=== PATIENT | male | born 1980 | race Caucasian/White ===

== ENCOUNTER 2019-01-02 14:46 | Inpatient (IN) | payer OTHER ==
[2019-01-02 16:23] VITALS: BMI 30.5
--- NOTE | 2019-01-02 18:14 | HP ---
"CIWA Score - Admission Criteria [facility]ASAS Guidelines: Admission for Medically Managed Detox: Requires at least one of the followin. CIWA greater than 12 2. Seizures within the past 24 hours 3. Delirium tremens within the past 24 hours 4. Hallucinations within the past 24 hours 5. Acute intervention needed for co occurring medical disorder 6. Acute intervention needed for co occurring psychiatric disorder 7. Severe withdrawal that cannot be handled at a lower level of care (continued vomiting, continued diarrhea, abnormal vital signs) requiring intravenous medication and/or fluids 8. Admission ROS [facility] Chief Complaint: seeking help for benzo use Allergies/Adverse Reactions: Allergies Allergy/AdvReac Type Severity Reaction Status Date / Time Bleach (Sodium Hypochlorite) AdvReac Verified 01/02/19 16:12 History of Present Illness: 38 y/o/m here seeking help for benzodiazepine use. He has been using Xanax heavily for the last 6 months but has used benzodiazepines on and off the the last 15 years. He has been using 10-20 2mg pills of Xanax almost everyday. He last used 3mg of Xanax yesterday. He uses cocaine less than once a week when he can't get access to Xanax. He uses the cocaine by inhaling and smoking it, last use 2 days ago. He has used it IV in the past but denies any current IV use. He has been in a methadone program at [facility] for 2 years, his current dose is 120mg. He had his methadone dose today. He has been using Heroin as well for the last 6 months. He last used heroin 2 days. He has been using 2 bags almost daily. He also uses Catapres 3mg 3-4 times a week when he doesn't have enough Xanax. He also uses Klonopin when he doesn't have access to Xanax. He denies any history of overdosing but does carry a Narcan kit. He has PMHx of asthma and depression. He uses albuterol as needed. He takes gabapentin and Trileptil for depression but does not always take it regularly, he has not used gabapentin and trileptil in a month. He had an appendectomy 2002. He smokes a pack a day of cigarettes. 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 He denies using alcohol currently. His longest period of sobriety was from 2007 to 2009. This report was requested by: Lillie Ruvalcaba | Reference #: [id number] Others' Prescriptions Patient Name: Pancho Nieves Date: 1980 Address: [address] [place] [address] [place] [address] Sex: Male Rx Written Rx Dispensed Drug Quantity Days Supply Prescriber Name 09/10/2018 09/11/2018 chlordiazepoxide 25 mg capsule 20 5 Jenny Duran MD - Ebola screening Have you traveled outside of the country in the last 21 days: No Have you had contact with anyone from an Ebola affected area: No Do you have a fever: No - Review of Systems Constitutional: Chills, Fever, Loss of Appetite EENT: reports: No Symptoms Reported Respiratory: reports: No Symptoms reported Cardiac: reports: No Symptoms Reported GI: reports: Diarrhea, Nausea, Vomiting : reports: No Symptoms Reported Musculoskeletal: reports: Muscle Pain Integumentary: reports: Other (abrasions) Neuro: reports: Tremors Endocrine: reports: Unexplained Weight Loss Hematology: reports: No Symptoms Reported Psychiatric: reports: Agitated, Anxious Other Systems: Reviewed and Negative Patient History - Patient Medical History Hx Anemia: No Hx Asthma: Yes Hx Chronic Obstructive Pulmonary Disease (COPD): No Hx Cancer: No Hx Cardiac Disorders: No Hx Congestive Heart Failure: No Hx Hypertension: No Hx Hypercholesterolemia: No Hx Pacemaker: No HX Cerebrovascular Accident: No Hx Seizures: No Hx Dementia: No Hx Diabetes: No Hx Gastrointestinal Disorders: No Hx Liver Disease: No Hx Genitourinary Disorders: No Hx Sexually Transmitted Disorders: No Hx Renal Disease (ESRD): No Hx Thyroid Disease: No Hx Human Immunodeficiency Virus (HIV): No (hiv - 10/03) Hx Hepatitis C: No Hx Depression: No Hx Suicide Attempt: No Hx Bipolar Disorder: No Hx Schizophrenia: No - Patient Surgical History Hx Neurologic Surgery: No Hx Cataract Extraction: No Hx Cardiac Surgery: No Hx Lung Surgery: No Hx Abdominal Surgery: No Hx Appendectomy: Yes (2002) Hx Cholecystectomy: No Hx Genitourinary Surgery: No Hx Orthopedic Surgery: No Hx Hysterectomy: No - PPD History Previous Implant?: Yes Documented Results: Negative w/o proof Implanted On Prior [facility] Admission?: No - Smoking Cessation Smoking history: Current every day smoker Have you smoked in the past 12 months: Yes Aproximately how many cigarettes per day: 20 Cigars Per Day: 0 Hx Chewing Tobacco Use: No Initiated information on smoking cessation: Yes 'Breaking Loose' booklet given: 01/02/19 - Substances abused Alprazolam (Xanax) Substance route: Oral Frequency: Daily Amount used: between 10 to 20 mg Age of first use: 25 Date of last use: 01/01/19 Family Disease History - Family Disease History Family Disease History: CA: Father (pancreatic - ) Admission Physical Exam [facility] - Vital Signs Vital Signs: Vital Signs - 24 hr 01/02/19 16:16 Temperature 97 F L Pulse Rate 87 Respiratory 18 Rate Blood Pressure 140/97 - Physical General Appearance: Yes: Mild Distress HEENTM: Yes: EOMI, Normocephalic Respiratory: Yes: Lungs Clear, Normal Breath Sounds, No Accessory Muscle Use Neck: Yes: Supple Cardiology: Yes: Regular Rhythm, Regular Rate, S1, S2 Abdominal: Yes: Normal Bowel Sounds, Non Tender, Soft. No: Guarding, Rebound Extremities: Yes: Normal Capillary Refill, Tremors. 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 NML intact, Fully Oriented, Alert, Motor Strength 5/5 Integumentary: Yes: Other (multiple well healing abrasions on the left side of the face) - Diagnostic (1) Asthma Current Visit: No Status: Chronic (2) Methadone maintenance therapy patient Current Visit: No Status: Chronic (3) Nicotine dependence Current Visit: No Status: Chronic Qualifiers: Nicotine product type: cigarettes Substance use status: uncomplicated Qualified Code(s): F17.210 - Nicotine dependence, cigarettes, uncomplicated (4) Severe benzodiazepine use disorder Current Visit: Yes Status: Acute Cleared for Admission [facility] - Detox or Rehab [facility] Level of Care: Medically Supervised 2Day Detox Regimen/Protocol: Valium Breathalyzer - Breathalyzer Breathalyzer: 0 Urine Drug Screen - Test Device Lot number: [id number] Expiration date: 10/14/20 - Control Is test valid?: Yes - Results Drug screen NEGATIVE: No Urine drug screen results: JOE-Cocaine, FEN-Fentanyl, MTD-Methadone, BZO- Benzodiazepines Inpatient Rehab Admission - Rehab Decision to Admit Inpatient rehab admission?: No"
[2019-01-02] MEDS ORDERED: MELATONIN 5 MG TABLETS PO PRN (19:04)
[2019-01-02] MEDS ORDERED: MAG HYDROX/AL HYDROX/SIMETH 30 ML UNIT-DOSE CUP PO PRN (19:04)
[2019-01-02] MEDS ORDERED: MAGNESIUM CITRATE 300 ML BOTTLE PO PRN (19:04)
[2019-01-02] MEDS ORDERED: BISMUTH SUBSALICYLATE 524 MG/30 ML UD PO PRN (19:04)
[2019-01-02] MEDS ORDERED: ACETAMINOPHEN 325 MG TABLET (FP) PO PRN ×2 (19:04)
[2019-01-02] MEDS ORDERED: IBUPROFEN 400 MG TABLET (FP) PO PRN (19:04)
[2019-01-02] MEDS ORDERED: MAGNESIUM HYDROX 2400MG/30ML ORAL SUSPENSION 30 ML CUP PO PRN (19:04)
[2019-01-02] MEDS ORDERED: diazePAM 5 MG TABLET PO ONE (19:04)
[2019-01-02] MEDS ORDERED: MENTHOL/PHENOL 1 EACH UD MM PRN (19:04)
[2019-01-02] MEDS ORDERED: ALBUTEROL SO4 8 GM HFA INHALER IH PRN (19:06)
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
[2019-01-02] MEDS: THIAMINE HCL 100 MG TABLET (FP) PO SCH (21:38)
[2019-01-02] MEDS: diazePAM 5 MG TABLET PO SCH (21:38)
[2019-01-03] MEDS: diazePAM 5 MG TABLET PO PRN ×3 (01:41→17:37)
[2019-01-03] MEDS: diazePAM 5 MG TABLET PO SCH ×3 (05:11→22:02)
[2019-01-03] MEDS ORDERED: METHADONE HCL 10 MG TABLET PO SCH (07:45)
[2019-01-03] MEDS ORDERED: METHADONE HCL 10 MG TABLET ONE (07:55)
[2019-01-03] MEDS ORDERED: METHADONE HCL 40 MG DISPERSABLE TABLET ONE (07:56)
[2019-01-03] MEDS: METHADONE 80 MG, METHADONE 20 MG PO SCH (08:02)
[2019-01-03] MEDS: BACITRACIN 15 GM TUBE TOPICAL OINTMENT TP SCH (10:28)
[2019-01-03] MEDS: hydrOXYzine HCL 25 MG TABLET (FP) PO PRN ×2 (10:30→17:38)
[2019-01-03] MEDS: METHOCARBAMOL 500 MG TABLET PO PRN ×2 (10:30→17:38)
[2019-01-03] MEDS: NICOTINE POLACRILEX 2 MG GUM BUC PRN ×3 (10:30→17:37)
[2019-01-03 10:34] LABS: ALBUMIN 3.4 g/dl (3.4-5.0); BILIRUBIN,TOTAL 0.2 mg/dL (0.2-1); BLOOD UREA NITROGEN 12.5 mg/dL (7-18); CREATININE 0.7 mg/dL (0.55-1.3); POTASSIUM 4.2 mmol/L (3.5-5.1); TOT PROT 6.3 g/dl (6.4-8.2)
[2019-01-03 10:56] LABS: HEMATOCRIT 37.4 % (35.4-49); HEMOGLOBIN 12.4 GM/dL (11.7-16.9); MCH 29.4 pg (25.7-33.7); MCHC 33.1 g/dl (32.0-35.9); MEAN CELL VOLUME 88.9 fl (80-96); MEAN PLT VOLUME 8.4 fl (7.5-11.1); PLATELET COUNT 238 K/MM3 (134-434); RBC 4.21 M/mm3 (4.00-5.60); RDW 14.6 % (11.9-15.9)
[2019-01-03] MEDS: PRENATAL VITAMINS W/ FOLIC ACID TABLET (FP) PO SCH (11:00)
--- NOTE | 2019-01-03 14:58 | PN ---
S CIWA - CIWA Score Nausea/Vomitin (Stomach Cramping.) Muscle Tremors: 3 Anxiety: 3 Agitation: 2 Paroxysmal Sweats: No Perspiration Orientation: 0-Oriented Tacttile Disturbances: 0-None Auditory Disturbances: 1-Very Mild Visual Disturbances: 2-Mild Sensitivity Headache: 0-None Present CIWA-Ar Total Score: 13 [facility] Progress Note (SOAP) Subjective: Sweating, Anxious, Interrupted Sleep, Tremors. Objective: PATIENT A & O X 3, OBSERVED AMBULATING ON UNIT UNASSISTED. IN NO ACUTE DISTRESS. 01/03/19 14:57 Vital Signs Temperature 97.2 F L 01/03/19 13:55 Pulse Rate 60 01/03/19 13:55 Respiratory Rate 18 01/03/19 13:55 Blood Pressure 135/89 01/03/19 13:55 O2 Sat by Pulse Oximetry (%) Laboratory Tests 01/03/19 01/03/19 01/03/19 08:00 08:00 08:00 WBC 4.0 RBC 4.21 Hgb 12.4 Hct 37.4 MCV 88.9 MCH 29.4 MCHC 33.1 RDW 14.6 D Plt Count 238 MPV 8.4 Sodium 140 Potassium 4.2 Chloride 108 H Carbon Dioxide 28 Anion Gap 4 L BUN 12.5 Creatinine 0.7 Est GFR (CKD-EPI)AfAm 140.71 Est GFR (CKD-EPI)NonAf 121.41 Random Glucose 91 Calcium 9.0 Total Bilirubin 0.2 AST 9 L ALT 17 Alkaline Phosphatase 89 Total Protein 6.3 L Albumin 3.4 RPR Titer Nonreactive LABS NOTED. RESULTS OF QFT /TB TEST PENDING. 01/03/19 14:58 Assessment: 01/03/19 14:58 WITHDRAWAL SYMPTOMS. Plan: CONTINUE DETOX.
[2019-01-03] MEDS: THIAMINE HCL 100 MG TABLET (FP) PO SCH (22:01)
[2019-01-04] MEDS: METHOCARBAMOL 500 MG TABLET PO PRN ×3 (03:29→22:10)
[2019-01-04] MEDS: hydrOXYzine HCL 25 MG TABLET (FP) PO PRN (03:29)
[2019-01-04] MEDS: diazePAM 5 MG TABLET PO PRN ×4 (03:29→22:10)
[2019-01-04] MEDS ORDERED: METHADONE HCL 10 MG TABLET ONE (04:31)
[2019-01-04] MEDS ORDERED: METHADONE HCL 40 MG DISPERSABLE TABLET ONE (04:32)
[2019-01-04] MEDS: METHADONE 80 MG, METHADONE 20 MG PO SCH (05:07)
[2019-01-04] MEDS: diazePAM 5 MG TABLET PO SCH ×2 (05:08→17:25)
[2019-01-04] MEDS: NICOTINE POLACRILEX 2 MG GUM BUC PRN ×4 (08:42→22:12)
--- NOTE | 2019-01-04 09:22 | PN ---
[facility] CIWA - CIWA Score Nausea/Vomitin-No Nausea/No Vomiting Muscle Tremors: 2 Anxiety: 3 Agitation: 2 Paroxysmal Sweats: 1-Minimal Palms Moist Orientation: 0-Oriented Tacttile Disturbances: 1-Very Mild Itch/Numbness Auditory Disturbances: 0-None Visual Disturbances: 0-None Headache: 0-None Present CIWA-Ar Total Score: 9 BHS Progress Note (SOAP) Subjective: 38 years old male admitted on 01/02/19 for acute benzo withdrawal sx management report valium helping the withdrawal sx that other hospitals 2 weeks benzo detox discuss risks of valium along with methadone patient stated that he is taking prascription valium monthly and requested prescription for valium encourage the patient discuss banzo prescription with methadone program provider Objective: 01/04/19 09:26 Vital Signs Temperature 98.6 F 01/04/19 09:06 Pulse Rate 88 01/04/19 09:06 Respiratory Rate 18 01/04/19 09:06 Blood Pressure 135/88 01/04/19 09:06 O2 Sat by Pulse Oximetry (%) Laboratory Last Values WBC 4.0 K/mm3 (4.0-10.0) 01/03/19 08:00 RBC 4.21 M/mm3 (4.00-5.60) 01/03/19 08:00 Hgb 12.4 GM/dL (11.7-16.9) 01/03/19 08:00 Hct 37.4 % (35.4-49) 01/03/19 08:00 MCV 88.9 fl (80-96) 01/03/19 08:00 MCH 29.4 pg (25.7-33.7) 01/03/19 08:00 MCHC 33.1 g/dl (32.0-35.9) 01/03/19 08:00 RDW 14.6 % (11.9-15.9) D 01/03/19 08:00 Plt Count 238 K/MM3 (134-434) 01/03/19 08:00 MPV 8.4 fl (7.5-11.1) 01/03/19 08:00 Sodium 140 mmol/L (136-145) 01/03/19 08:00 Potassium 4.2 mmol/L (3.5-5.1) 01/03/19 08:00 Chloride 108 mmol/L (98-107) H 01/03/19 08:00 Carbon Dioxide 28 mmol/L (21-32) 01/03/19 08:00 Anion Gap 4 MMOL/L (8-16) L 01/03/19 08:00 BUN 12.5 mg/dL (7-18) 01/03/19 08:00 Creatinine 0.7 mg/dL (0.55-1.3) 01/03/19 08:00 Est GFR (CKD-EPI)AfAm 140.71 01/03/19 08:00 Est GFR (CKD-EPI)NonAf 121.41 01/03/19 08:00 Random Glucose 91 mg/dL (74-106) 01/03/19 08:00 Calcium 9.0 mg/dL (8.5-10.1) 01/03/19 08:00 Total Bilirubin 0.2 mg/dL (0.2-1) 01/03/19 08:00 AST 9 U/L (15-37) L 01/03/19 08:00 ALT 17 U/L (13-61) 01/03/19 08:00 Alkaline Phosphatase 89 U/L (45-117) 01/03/19 08:00 Total Protein 6.3 g/dl (6.4-8.2) L 01/03/19 08:00 Albumin 3.4 g/dl (3.4-5.0) 01/03/19 08:00 RPR Titer Nonreactive (NONREACTIVE) 01/03/19 08:00 lab noted Assessment: 01/04/19 09:27 mild benzo withdrawal sx Plan: continue benzo detox
[2019-01-04] MEDS: PRENATAL VITAMINS W/ FOLIC ACID TABLET (FP) PO SCH (10:51)
[2019-01-04] MEDS: BACITRACIN 15 GM TUBE TOPICAL OINTMENT TP SCH (10:51)
[2019-01-04] MEDS: THIAMINE HCL 100 MG TABLET (FP) PO SCH (22:09)
[2019-01-05] MEDS: NICOTINE POLACRILEX 2 MG GUM BUC PRN ×2 (01:45→05:20)
[2019-01-05] MEDS: diazePAM 5 MG TABLET PO PRN ×2 (02:13→09:38)
[2019-01-05] MEDS ORDERED: METHADONE HCL 40 MG DISPERSABLE TABLET ONE (04:55)
[2019-01-05] MEDS ORDERED: METHADONE HCL 10 MG TABLET ONE (04:55)
[2019-01-05] MEDS: METHOCARBAMOL 500 MG TABLET PO PRN (05:17)
[2019-01-05] MEDS: METHADONE 80 MG, METHADONE 20 MG PO SCH (05:17)
[2019-01-05] MEDS ORDERED: diazePAM 5 MG TABLET PO ONE (06:00)
[2019-01-05 07:16] VITALS: BP 115/70; PULSE 57; TEMP 97.3
[2019-01-05] MEDS: PRENATAL VITAMINS W/ FOLIC ACID TABLET (FP) PO SCH (09:38)
[2019-01-05] MEDS: BACITRACIN 15 GM TUBE TOPICAL OINTMENT TP SCH (09:40)
--- NOTE | 2019-01-05 16:05 | DS ---
[facility] Detox Discharge Summary Admission Date: 01/02/19 Discharge Date: 01/05/19 - History Present History: Alcohol Dependence Additional Comments: 38 years old male admitted on 01/02/19 for alcohol withdrawal sx management doing well throughout the detox stay no complication during the detox process alert oriented x 3 no nausea steady gait no diarrhea [facility] - Physical Exam Results Vital Signs: Vital Signs Temperature 97.3 F L 01/05/19 07:15 Pulse Rate 57 L 01/05/19 07:15 Respiratory Rate 18 01/05/19 07:15 Blood Pressure 115/70 01/05/19 07:15 O2 Sat by Pulse Oximetry (%) Pertinent Admission Physical Exam Findings: alcohol withdrawal sx Laboratory Last Values WBC 4.0 K/mm3 (4.0-10.0) 01/03/19 08:00 RBC 4.21 M/mm3 (4.00-5.60) 01/03/19 08:00 Hgb 12.4 GM/dL (11.7-16.9) 01/03/19 08:00 Hct 37.4 % (35.4-49) 01/03/19 08:00 MCV 88.9 fl (80-96) 01/03/19 08:00 MCH 29.4 pg (25.7-33.7) 01/03/19 08:00 MCHC 33.1 g/dl (32.0-35.9) 01/03/19 08:00 RDW 14.6 % (11.9-15.9) D 01/03/19 08:00 Plt Count 238 K/MM3 (134-434) 01/03/19 08:00 MPV 8.4 fl (7.5-11.1) 01/03/19 08:00 Sodium 140 mmol/L (136-145) 01/03/19 08:00 Potassium 4.2 mmol/L (3.5-5.1) 01/03/19 08:00 Chloride 108 mmol/L (98-107) H 01/03/19 08:00 Carbon Dioxide 28 mmol/L (21-32) 01/03/19 08:00 Anion Gap 4 MMOL/L (8-16) L 01/03/19 08:00 BUN 12.5 mg/dL (7-18) 01/03/19 08:00 Creatinine 0.7 mg/dL (0.55-1.3) 01/03/19 08:00 Est GFR (CKD-EPI)AfAm 140.71 01/03/19 08:00 Est GFR (CKD-EPI)NonAf 121.41 01/03/19 08:00 Random Glucose 91 mg/dL (74-106) 01/03/19 08:00 Calcium 9.0 mg/dL (8.5-10.1) 01/03/19 08:00 Total Bilirubin 0.2 mg/dL (0.2-1) 01/03/19 08:00 AST 9 U/L (15-37) L 01/03/19 08:00 ALT 17 U/L (13-61) 01/03/19 08:00 Alkaline Phosphatase 89 U/L (45-117) 01/03/19 08:00 Total Protein 6.3 g/dl (6.4-8.2) L 01/03/19 08:00 Albumin 3.4 g/dl (3.4-5.0) 01/03/19 08:00 RPR Titer Nonreactive (NONREACTIVE) 01/03/19 08:00 lab noted - Treatment Hospital Course: Detox Protocol Followed, Detoxed Safely, Responded well, Discharged Condition Good, Rehab Referral Accepted Patient has Accepted a Rehab Referral to: wellness center - Medication Discharge Medications: Ambulatory Orders Albuterol Sulfate [Proair Hfa -] 1 inh IH PRN PRN 06/09/15 Gabapentin 300 mg PO TID 01/02/19 - Diagnosis (1) Asthma Status: Chronic Qualifiers: Asthma severity: mild Asthma persistence: intermittent Asthma complication type: with status asthmaticus Qualified Code(s): J45.22 - Mild intermittent asthma with status asthmaticus (2) Alcohol dependence with uncomplicated withdrawal Status: Acute (3) Methadone maintenance therapy patient Status: Chronic (4) Nicotine dependence Status: Acute Qualifiers: Nicotine product type: cigarettes Substance use status: in withdrawal Qualified Code(s): F17.213 - Nicotine dependence, cigarettes, with withdrawal - AMA Did Patient Leave Against Medical Advice: No
== END 2019-01-05 09:43 | disposition home or self-care (01) | DRG 773 ==
LOC: YASAS 14:46 → Y3N 18:40
PROVIDERS: ADMIT Surgery; ATTEND Surgery
PROC: HZ2ZZZZ Detoxification Services for Substance Abuse Treatment (ICD-10-PCS; principal; 2019-01-02)
DX: F10.230 Alcohol dependence with withdrawal, uncomplicated (principal); F11.20 Opioid dependence, uncomplicated; F13.230 Sedative, hypnotic or anxiolytic dependence with withdrawal, uncomplicated; F17.213 Nicotine dependence, cigarettes, with withdrawal; J45.22 Mild intermittent asthma with status asthmaticus
CPT/HCPCS: 36415; 80053; 85027; 86480; 86593

== ENCOUNTER 2019-01-26 12:42 | Inpatient (IN) | payer OTHER ==
[2019-01-26 15:04] VITALS: BMI 29.7
--- NOTE | 2019-01-26 16:22 | HP ---
COWS - Scale Resting Pulse: 1= VT 81-100 Sweatin= Chills/Flushing Restless Observation: 1= Difficult to Sit Still Pupil Size: 1= Pupils >than Normal Bone or Joint Aches: 2= Severe Diffuse Aches Runny Nose/ Eye Tearin= Runny Nose/Eyes GI Upset > 30mins: 2= Nausea/Diarrhea Tremor Observation: 2= Slight Tremor Visible Yawning Observation: 1= 1-2x During Session Anxiety or Irritability: 1=Feels Anxious/Irritable Goose Flesh Skin: 0=Smooth Skin COWS Score: 14 CIWA Score Nausea/Vomitin-Mild Nausea/No Vomiting Muscle Tremors: 3 Anxiety: 3 Agitation: 3 Paroxysmal Sweats: 3 Orientation: 0-Oriented Tacttile Disturbances: 0-None Auditory Disturbances: 0-None Visual Disturbances: 0-None Headache: 2-Mild CIWA-Ar Total Score: 15 - Admission Criteria OASAS Guidelines: Admission for Medically Managed Detox: Requires at least one of the followin. CIWA greater than 12 2. Seizures within the past 24 hours 3. Delirium tremens within the past 24 hours 4. Hallucinations within the past 24 hours 5. Acute intervention needed for co occurring medical disorder 6. Acute intervention needed for co occurring psychiatric disorder 7. Severe withdrawal that cannot be handled at a lower level of care (continued vomiting, continued diarrhea, abnormal vital signs) requiring intravenous medication and/or fluids 8. Admission ROS [facility] Chief Complaint: pt here for alcohol and xanax detox Allergies/Adverse Reactions: Allergies Allergy/AdvReac Type Severity Reaction Status Date / Time No Known Drug Allergies Allergy Verified 01/02/19 21:04 Bleach (Sodium Hypochlorite) AdvReac Mild Itching Verified 01/26/19 14:55 History of Present Illness: 38 yo old with HCV- cured, asthma, left here after detox on 01/05/19, returns here because he "does not want to ". Here for heroin and xanax detoc. Pt was discharged from a MAT methadone program about a month ago due to violation of program rules. Pt would like to get into another methadone program. Heroin 4-5 bundles/day, IV, narcan kit, no h/o OD Xanax-10-20 2 mg dose/day DUR- no meds - Ebola screening Have you traveled outside of the country in the last 21 days: No Have you had contact with anyone from an Ebola affected area: No Do you have a fever: No - Review of Systems Constitutional: No Symptoms Reported EENT: reports: Other (toothache) Respiratory: reports: No Symptoms reported Cardiac: reports: No Symptoms Reported GI: reports: No Symptoms Reported : reports: No Symptoms Reported Musculoskeletal: reports: No Symptoms Reported Integumentary: reports: Other (tatoos) Endocrine: reports: No Symptoms Reported Hematology: reports: Other Psychiatric: reports: Anxious Patient History - Patient Medical History Hx Anemia: No Hx Asthma: Yes Hx Chronic Obstructive Pulmonary Disease (COPD): No Hx Cancer: No Hx Cardiac Disorders: No Hx Congestive Heart Failure: No Hx Hypertension: No Hx Hypercholesterolemia: No Hx Pacemaker: No HX Cerebrovascular Accident: No Hx Seizures: No Hx Dementia: No Hx Diabetes: No Hx Gastrointestinal Disorders: No Hx Liver Disease: No Hx Genitourinary Disorders: No Hx Sexually Transmitted Disorders: No Hx Renal Disease (ESRD): No Hx Thyroid Disease: No Hx Human Immunodeficiency Virus (HIV): No (hiv - 10/03) Hx Hepatitis C: No Hx Depression: No Hx Suicide Attempt: No Hx Bipolar Disorder: No Hx Schizophrenia: No - Patient Surgical History Past Surgical History: Yes Hx Neurologic Surgery: No Hx Cataract Extraction: No Hx Cardiac Surgery: No Hx Lung Surgery: No Hx Abdominal Surgery: No Hx Appendectomy: Yes (2002) Hx Cholecystectomy: No Hx Genitourinary Surgery: No Hx Orthopedic Surgery: No Hx Hysterectomy: No Anesthesia Reaction: No - Smoking Cessation Smoking history: Current every day smoker Have you smoked in the past 12 months: Yes Aproximately how many cigarettes per day: 20 Cigars Per Day: 0 Hx Chewing Tobacco Use: No Initiated information on smoking cessation: Yes 'Breaking Loose' booklet given: 01/26/19 - Substance & Tx. History Hx Alcohol Use: Yes Hx Substance Use: Yes Substance Use Type: Heroin, Tranquilizers - Substances abused Alprazolam (Xanax) Substance route: Oral Frequency: Daily Amount used: 20 to 40 mg Age of first use: 28 Date of last use: 01/24/19 Heroin Substance route: Injection Frequency: Daily Amount used: 3 grams or 4 to 5 bundles a day Age of first use: 20 Date of last use: 01/25/19 Family Disease History - Family Disease History Family Disease History: CA: Father (pancreatic - ) Admission Physical Exam [facility] - Vital Signs Vital Signs: Vital Signs - 24 hr 01/26/19 14:53 Temperature 97.6 F Pulse Rate 94 H Respiratory 18 Rate Blood Pressure 130/95 - Physical General Appearance: Yes: Within Normal Limits HEENTM: Yes: Within Normal Limits Respiratory: Yes: Within Normal Limits, Lungs Clear Neck: Yes: Within Normal Limits, No masses,lesions,Nodules Cardiology: Yes: Within Normal Limits Abdominal: Yes: Within Normal Limits, Normal Bowel Sounds, Non Tender Genitourinary: Yes: Within Normal Limits Back: Yes: Within Normal Limits Musculoskeletal: Yes: Within Normal Limits Extremities: Yes: Within Normal Limits Neurological: Yes: Within Normal Limits Integumentary: Yes: Within Normal Limits, Petechiae - Diagnostic (1) Anxiolytic dependence Current Visit: No Status: Acute (2) Opioid dependence on agonist therapy Current Visit: No Status: Acute (3) Severe benzodiazepine use disorder Current Visit: No Status: Acute (4) Xanax use disorder, severe Current Visit: No Status: Acute (5) Asthma Current Visit: No Status: Chronic Qualifiers: Asthma severity: mild Asthma persistence: intermittent Asthma complication type: with status asthmaticus Qualified Code(s): J45.22 - Mild intermittent asthma with status asthmaticus Breathalyzer - Breathalyzer Breathalyzer: 0 Urine Drug Screen - Test Device Lot number: [id number] Expiration date: 10/14/20 - Control Is test valid?: Yes - Results Drug screen NEGATIVE: No Urine drug screen results: JOE-Cocaine, FEN-Fentanyl, MTD-Methadone, BZO- Benzodiazepines Inpatient Rehab Admission - Rehab Decision to Admit Inpatient rehab admission?: No
[2019-01-26] MEDS ORDERED: MENTHOL/PHENOL 1 EACH UD MM PRN (16:28)
[2019-01-26] MEDS ORDERED: NALOXONE HCL 0.4 MG/ML VIAL IM PRN (16:28)
[2019-01-26] MEDS ORDERED: MAGNESIUM HYDROX 2400MG/30ML ORAL SUSPENSION 30 ML CUP PO PRN (16:28)
[2019-01-26] MEDS ORDERED: ACETAMINOPHEN 325 MG TABLET (FP) PO PRN (16:28)
[2019-01-26] MEDS ORDERED: MAGNESIUM CITRATE 300 ML BOTTLE PO PRN (16:28)
[2019-01-26] MEDS ORDERED: IBUPROFEN 400 MG TABLET (FP) PO PRN (16:28)
[2019-01-26] MEDS ORDERED: BISMUTH SUBSALICYLATE 524 MG/30 ML UD PO PRN (16:28)
[2019-01-26] MEDS ORDERED: MAG HYDROX/AL HYDROX/SIMETH 30 ML UNIT-DOSE CUP PO PRN (16:28)
[2019-01-26] MEDS ORDERED: ALBUTEROL SO4 8 GM HFA INHALER IH PRN (16:32)
[2019-01-26] MEDS ORDERED: diazePAM 5 MG TABLET PO ONE (17:00)
[2019-01-26] MEDS ORDERED: METHADONE HCL 10 MG TABLET (FOR DETOX USE ONLY) PO ONE (19:00)
[2019-01-26] MEDS: NICOTINE POLACRILEX 4 MG GUM BUC PRN ×2 (19:29→22:20)
[2019-01-26] MEDS: METHOCARBAMOL 500 MG TABLET PO PRN (20:36)
[2019-01-26] MEDS: cloNIDine HCL 0.1 MG TABLET PO PRN (20:36)
[2019-01-26] MEDS: diazePAM 5 MG TABLET PO SCH (22:17)
[2019-01-26] MEDS: THIAMINE HCL 100 MG TABLET (FP) PO SCH (22:17)
[2019-01-26] MEDS: MELATONIN 5 MG TABLETS PO PRN (22:18)
[2019-01-27] MEDS: diazePAM 5 MG TABLET PO PRN ×4 (00:01→16:50)
[2019-01-27] MEDS: cloNIDine HCL 0.1 MG TABLET PO PRN ×2 (02:37→06:46)
[2019-01-27] MEDS: NICOTINE POLACRILEX 4 MG GUM BUC PRN ×4 (02:41→22:31)
[2019-01-27] MEDS: diazePAM 5 MG TABLET PO SCH ×3 (06:22→22:27)
[2019-01-27] MEDS ORDERED: METHADONE (DETOX) 20 MG, METHADONE (DETOX) 5 MG PO ONE (10:00)
[2019-01-27] MEDS ORDERED: ONDANSETRON *ODT* 4 MG TABLET SL PRN (10:11)
[2019-01-27] MEDS ORDERED: LIDOCAINE VISCOUS 2% ORAL/TOP 20 ML UNIT-DOSE CUP MM PRN (10:12)
--- NOTE | 2019-01-27 11:15 | PN ---
[facility] CI[facility] - CIWA Score Nausea/Vomitin-No Nausea/No Vomiting Muscle Tremors: 3 Anxiety: 3 Agitation: 3 Paroxysmal Sweats: 3 Orientation: 0-Oriented Tacttile Disturbances: 0-None Auditory Disturbances: 0-None Visual Disturbances: 0-None Headache: 0-None Present CIWA-Ar Total Score: 12 BHS COWS - Scale Resting Pulse: 1= [place] 81-100 Sweatin=Flushed/Facial Moisture Restless Observation: 1= Difficult to Sit Still Pupil Size: 0= Normal to Room Light Bone or Joint Aches: 2= Severe Diffuse Aches Runny Nose/ Eye Tearin= Runny Nose/Eyes GI Upset > 30mins: 2= Nausea/Diarrhea Tremor Observation of Outstretched Hands: 2= Slight Tremor Visible Yawning Observation: 1= 1-2x During Session Anxiety or Irritability: 1=Feels Anxious/Irritable Goose Flesh Skin: 0=Smooth Skin COWS Score: 14 S Progress Note (SOAP) Subjective: shakes sweats interrupted sleep body aches nausea irritable Objective: 01/27/19 11:16 Vital Signs Temperature 97.4 F L 01/27/19 09:35 Pulse Rate 91 H 01/27/19 09:35 Respiratory Rate 18 01/27/19 09:35 Blood Pressure 113/67 01/27/19 09:35 O2 Sat by Pulse Oximetry (%) labs pending aaox3 ambulating no acute distress Assessment: 01/27/19 12:00 withdrawal sx Plan: continue detox increase fluids pending labs
[2019-01-27] MEDS: PRENATAL VITAMINS W/ FOLIC ACID TABLET (FP) PO SCH (11:25)
[2019-01-27] MEDS: NICOTINE 21 MG/24 HOURS TOPICAL PATCH TD SCH (11:26)
[2019-01-27] MEDS ORDERED: METHADONE HCL 5 MG TABLET (FOR DETOX USE ONLY) ONE (11:29)
[2019-01-27] MEDS: METHOCARBAMOL 500 MG TABLET PO PRN ×2 (11:30→22:31)
[2019-01-27] MEDS ORDERED: METHADONE HCL 10 MG TABLET (FOR DETOX USE ONLY) ONE (11:30)
[2019-01-27] MEDS: ACETAMINOPHEN 325 MG TABLET (FP) PO PRN ×2 (11:34→17:38)
[2019-01-27 13:07] LABS: ALBUMIN 3.3 g/dl (3.4-5.0); BILIRUBIN,TOTAL 0.8 mg/dL (0.2-1); CALCIUM 8.6 mg/dL (8.5-10.1); CREATININE 0.8 mg/dL (0.55-1.3); POTASSIUM 3.7 mmol/L (3.5-5.1); TOT PROT 6.2 g/dl (6.4-8.2)
[2019-01-27 13:52] LABS: HEMATOCRIT 33.8 % (35.4-49); HEMOGLOBIN 11.4 GM/dL (11.7-16.9); MCH 29.5 pg (25.7-33.7); MCHC 33.8 g/dl (32.0-35.9); MEAN CELL VOLUME 87.2 fl (80-96); MEAN PLT VOLUME 8.1 fl (7.5-11.1); PLATELET COUNT 218 K/MM3 (134-434); RBC 3.87 M/mm3 (4.00-5.60); RDW 14.1 % (11.9-15.9); WHITE BLOOD COUNT 4.6 K/mm3 (4.0-10.0)
[2019-01-27] MEDS: THIAMINE HCL 100 MG TABLET (FP) PO SCH (22:27)
[2019-01-27] MEDS: MELATONIN 5 MG TABLETS PO PRN (22:31)
[2019-01-27] MEDS: hydrOXYzine PAMOATE 25 MG CAPSULE (FP) PO PRN (22:31)
[2019-01-28] MEDS: diazePAM 5 MG TABLET PO PRN ×5 (01:55→23:42)
[2019-01-28] MEDS: cloNIDine HCL 0.1 MG TABLET PO PRN ×3 (04:25→23:09)
[2019-01-28] MEDS: diazePAM 5 MG TABLET PO SCH ×2 (06:25→17:19)
[2019-01-28] MEDS: METHOCARBAMOL 500 MG TABLET PO PRN ×3 (06:25→20:17)
[2019-01-28] MEDS: NICOTINE POLACRILEX 4 MG GUM BUC PRN ×3 (06:27→20:14)
[2019-01-28] MEDS: IBUPROFEN 400 MG TABLET (FP) PO PRN (06:46)
[2019-01-28] MEDS: PRENATAL VITAMINS W/ FOLIC ACID TABLET (FP) PO SCH (09:48)
[2019-01-28] MEDS: NICOTINE 21 MG/24 HOURS TOPICAL PATCH TD SCH (09:48)
--- NOTE | 2019-01-28 09:57 | PN ---
S CIWA - CIWA Score Nausea/Vomitin-No Nausea/No Vomiting Muscle Tremors: 2 Anxiety: 3 Agitation: 0-Normal Activity Paroxysmal Sweats: 3 Orientation: 0-Oriented Tacttile Disturbances: 2-Mild Itch/Numbness/Burn Auditory Disturbances: 0-None Visual Disturbances: 0-None Headache: 1-Very Mild CIWA-Ar Total Score: 11 S COWS - Scale Resting Pulse: 1= [place] 81-100 Sweatin= Beads of Sweat on Face Restless Observation: 1= Difficult to Sit Still Pupil Size: 0= Normal to Room Light Bone or Joint Aches: 2= Severe Diffuse Aches Runny Nose/ Eye Tearin= None GI Upset > 30mins: 0= None Tremor Observation of Outstretched Hands: 2= Slight Tremor Visible Yawning Observation: 1= 1-2x During Session Anxiety or Irritability: 2=Irritable/Anxious Goose Flesh Skin: 0=Smooth Skin COWS Score: 12 S Progress Note (SOAP) Subjective: c/o sweats, anxiety, irritability, muscle aches, chills, shakes, back pain, and mild headache. Objective: 01/28/19 09:58 Vital Signs 01/28/19 01/28/19 01/28/19 03:30 07:26 09:36 Temperature 96.8 F L 97.6 F Pulse Rate 86 74 Respiratory 18 18 18 Rate Blood Pressure 122/86 101/58 L Lab Results WBC 4.6 K/mm3 (4.0-10.0) 01/27/19 07:30 RBC 3.87 M/mm3 (4.00-5.60) L 01/27/19 07:30 Hgb 11.4 GM/dL (11.7-16.9) L 01/27/19 07:30 Hct 33.8 % (35.4-49) L 01/27/19 07:30 MCV 87.2 fl (80-96) 01/27/19 07:30 MCHC 33.8 g/dl (32.0-35.9) 01/27/19 07:30 RDW 14.1 % (11.9-15.9) 01/27/19 07:30 Plt Count 218 K/MM3 (134-434) 01/27/19 07:30 Sodium 139 mmol/L (136-145) 01/27/19 07:30 Potassium 3.7 mmol/L (3.5-5.1) 01/27/19 07:30 Chloride 102 mmol/L (98-107) 01/27/19 07:30 Carbon Dioxide 33 mmol/L (21-32) H 01/27/19 07:30 Anion Gap 4 MMOL/L (8-16) L 01/27/19 07:30 BUN 12.0 mg/dL (7-18) 01/27/19 07:30 Creatinine 0.8 mg/dL (0.55-1.3) 01/27/19 07:30 Random Glucose 102 mg/dL (74-106) 01/27/19 07:30 Calcium 8.6 mg/dL (8.5-10.1) 01/27/19 07:30 Labs noted. Assessment: 01/28/19 09:59 AOX3, in no respiratory distress. Full ROM, ambulating in the unit. Withdrawal symptoms. Plan: continue detox.
[2019-01-28] MEDS ORDERED: METHADONE HCL 10 MG TABLET (FOR DETOX USE ONLY) PO ONE (10:00)
[2019-01-28] MEDS: ACETAMINOPHEN 325 MG TABLET (FP) PO PRN (20:15)
[2019-01-28] MEDS: hydrOXYzine PAMOATE 25 MG CAPSULE (FP) PO PRN (22:10)
[2019-01-28] MEDS: THIAMINE HCL 100 MG TABLET (FP) PO SCH (22:11)
[2019-01-28] MEDS: MELATONIN 5 MG TABLETS PO PRN (22:11)
[2019-01-29] MEDS: diazePAM 5 MG TABLET PO PRN ×3 (04:38→13:28)
[2019-01-29] MEDS ORDERED: diazePAM 5 MG TABLET PO ONE ×2 (06:00→21:26)
[2019-01-29] MEDS ORDERED: METHADONE HCL 5 MG TABLET (FOR DETOX USE ONLY) ONE (08:48)
[2019-01-29] MEDS ORDERED: METHADONE HCL 10 MG TABLET (FOR DETOX USE ONLY) ONE (08:48)
[2019-01-29] MEDS: PRENATAL VITAMINS W/ FOLIC ACID TABLET (FP) PO SCH (09:29)
[2019-01-29] MEDS: NICOTINE 21 MG/24 HOURS TOPICAL PATCH TD SCH (09:29)
[2019-01-29] MEDS: METHOCARBAMOL 500 MG TABLET PO PRN ×3 (09:31→22:22)
[2019-01-29] MEDS: IBUPROFEN 400 MG TABLET (FP) PO PRN (09:35)
[2019-01-29] MEDS ORDERED: METHADONE (DETOX) 10 MG, METHADONE (DETOX) 5 MG PO ONE (10:00)
--- NOTE | 2019-01-29 10:31 | PN ---
[facility] CIWA - CIWA Score Nausea/Vomitin-No Nausea/No Vomiting Muscle Tremors: 2 Anxiety: 3 Agitation: 2 Paroxysmal Sweats: 3 Orientation: 0-Oriented Tacttile Disturbances: 0-None Auditory Disturbances: 0-None Visual Disturbances: 0-None Headache: 0-None Present CIWA-Ar Total Score: 10 BHS COWS - Scale Resting Pulse: 1= [place] 81-100 Sweatin= Chills/Flushing Restless Observation: 1= Difficult to Sit Still Pupil Size: 0= Normal to Room Light Bone or Joint Aches: 2= Severe Diffuse Aches Runny Nose/ Eye Tearin= None GI Upset > 30mins: 0= None Tremor Observation of Outstretched Hands: 2= Slight Tremor Visible Yawning Observation: 1= 1-2x During Session Anxiety or Irritability: 2=Irritable/Anxious Goose Flesh Skin: 0=Smooth Skin COWS Score: 10 BHS Progress Note (SOAP) Subjective: c/o anxiety, irritability, shakes, chills, muscle aches, and sweats. Objective: 01/29/19 10:31 Vital Signs 01/29/19 01/29/19 01/29/19 03:30 08:21 09:42 Temperature 97.3 F L 98.1 F Pulse Rate 70 82 Respiratory 18 18 20 Rate Blood Pressure 126/73 156/94 Assessment: 01/29/19 10:30 AOX3, in no respiratory distress. Full ROM, ambulating in the unit. withdrawal symptoms. Plan: continue detox.
[2019-01-29] MEDS: hydrOXYzine PAMOATE 25 MG CAPSULE (FP) PO PRN ×2 (15:58→22:23)
[2019-01-29] MEDS: NICOTINE POLACRILEX 4 MG GUM BUC PRN ×2 (16:06→22:22)
[2019-01-29] MEDS: cloNIDine HCL 0.1 MG TABLET PO PRN (18:20)
[2019-01-29] MEDS: THIAMINE HCL 100 MG TABLET (FP) PO SCH (22:19)
[2019-01-29] MEDS: MELATONIN 5 MG TABLETS PO PRN (22:19)
[2019-01-29] MEDS: ACETAMINOPHEN 325 MG TABLET (FP) PO PRN (23:14)
[2019-01-30] MEDS: NICOTINE POLACRILEX 4 MG GUM BUC PRN (03:59)
[2019-01-30] MEDS: METHOCARBAMOL 500 MG TABLET PO PRN (03:59)
[2019-01-30] MEDS: hydrOXYzine PAMOATE 25 MG CAPSULE (FP) PO PRN (03:59)
[2019-01-30] MEDS ORDERED: diazePAM 5 MG TABLET PO ONE (09:05)
[2019-01-30 09:42] VITALS: BP 154/91; PULSE 92; TEMP 97.3
[2019-01-30] MEDS: cloNIDine HCL 0.1 MG TABLET PO PRN (09:50)
[2019-01-30] MEDS: PRENATAL VITAMINS W/ FOLIC ACID TABLET (FP) PO SCH (09:52)
[2019-01-30] MEDS: NICOTINE 21 MG/24 HOURS TOPICAL PATCH TD SCH (09:52)
[2019-01-30] MEDS ORDERED: METHADONE HCL 10 MG TABLET (FOR DETOX USE ONLY) PO ONE (10:00)
--- NOTE | 2019-01-30 11:28 | DS ---
[facility] Detox Discharge Summary Admission Date: 01/26/19 Discharge Date: 01/30/19 (Left AMA) - History Present History: Opioid Dependence Additional Comments: Pt left AMA, pt did not complete his detox protocol. Pt states, "I just have to leave to take care of something". An attempt to let him stay and complete his protocol failed. Pt is encouraged to follow-up with CD outpatient program and also to follow-up with his pmd but pt was adamant. Pt is alert and oriented x3 and in no respiratory distress. Pertinent Past History: h/o heroin and benzo's use disorder. - Physical Exam Results Vital Signs: Vital Signs Temperature 97.3 F L 01/30/19 09:42 Pulse Rate 92 H 01/30/19 09:42 Respiratory Rate 18 01/30/19 09:42 Blood Pressure 154/91 01/30/19 09:42 O2 Sat by Pulse Oximetry (%) Vital Signs 01/30/19 09:42 Temperature 97.3 F L Pulse Rate 92 H Respiratory 18 Rate Blood Pressure 154/91 Lab Results WBC 4.6 K/mm3 (4.0-10.0) 01/27/19 07:30 RBC 3.87 M/mm3 (4.00-5.60) L 01/27/19 07:30 Hgb 11.4 GM/dL (11.7-16.9) L 01/27/19 07:30 Hct 33.8 % (35.4-49) L 01/27/19 07:30 MCV 87.2 fl (80-96) 01/27/19 07:30 MCHC 33.8 g/dl (32.0-35.9) 01/27/19 07:30 RDW 14.1 % (11.9-15.9) 01/27/19 07:30 Plt Count 218 K/MM3 (134-434) 01/27/19 07:30 Sodium 139 mmol/L (136-145) 01/27/19 07:30 Potassium 3.7 mmol/L (3.5-5.1) 01/27/19 07:30 Chloride 102 mmol/L (98-107) 01/27/19 07:30 Carbon Dioxide 33 mmol/L (21-32) H 01/27/19 07:30 Anion Gap 4 MMOL/L (8-16) L 01/27/19 07:30 BUN 12.0 mg/dL (7-18) 01/27/19 07:30 Creatinine 0.8 mg/dL (0.55-1.3) 01/27/19 07:30 Random Glucose 102 mg/dL (74-106) 01/27/19 07:30 Calcium 8.6 mg/dL (8.5-10.1) 01/27/19 07:30 Labs noted. Pertinent Admission Physical Exam Findings: withdrawal symptoms. - Treatment Hospital Course: Detox Protocol Followed - Medication Discharge Medications: Ambulatory Orders Albuterol Sulfate [Proair Hfa -] 1 inh IH PRN PRN 06/09/15 Gabapentin 300 mg PO TID 01/02/19 - Diagnosis (1) Alcohol dependence with uncomplicated withdrawal Current Visit: No Status: Acute (2) Anxiolytic dependence Current Visit: No Status: Acute (3) Methadone misuse Current Visit: No Status: Acute (4) Nicotine dependence Current Visit: No Status: Acute Qualifiers: Nicotine product type: cigarettes Substance use status: in withdrawal Qualified Code(s): F17.213 - Nicotine dependence, cigarettes, with withdrawal (5) Severe benzodiazepine use disorder Current Visit: No Status: Acute (6) Xanax use disorder, severe Current Visit: No Status: Acute (7) Asthma Current Visit: No Status: Chronic Qualifiers: Asthma severity: mild Asthma persistence: intermittent Asthma complication type: with status asthmaticus Qualified Code(s): J45.22 - Mild intermittent asthma with status asthmaticus (8) Xanax use disorder, mild Current Visit: No Status: Chronic - AMA Did Patient Leave Against Medical Advice: Yes
--- NOTE | 2019-01-30 11:39 | PN ---
[facility] CIWA - CIWA Score Nausea/Vomitin-No Nausea/No Vomiting Muscle Tremors: 2 Anxiety: 3 Agitation: 2 Paroxysmal Sweats: 3 Orientation: 0-Oriented Tacttile Disturbances: 0-None Auditory Disturbances: 0-None Visual Disturbances: 0-None Headache: 0-None Present CIWA-Ar Total Score: 10 [facility] COWS - Scale Resting Pulse: 1= [place] 81-100 Sweatin= Beads of Sweat on Face Restless Observation: 1= Difficult to Sit Still Pupil Size: 0= Normal to Room Light Bone or Joint Aches: 1= Mild Discomfort Runny Nose/ Eye Tearin= None GI Upset > 30mins: 0= None Tremor Observation of Outstretched Hands: 2= Slight Tremor Visible Yawning Observation: 1= 1-2x During Session Anxiety or Irritability: 1=Feels Anxious/Irritable Goose Flesh Skin: 0=Smooth Skin COWS Score: 10
[2019-01-31] MEDS ORDERED: METHADONE HCL 5 MG TABLET (FOR DETOX USE ONLY) PO ONE (06:00)
== END 2019-01-30 11:11 | disposition left against medical advice (07) | DRG 770 ==
LOC: YASAS 12:42 → Y6N 17:37
PROVIDERS: ADMIT Surgery; ATTEND Surgery
PROC: HZ2ZZZZ Detoxification Services for Substance Abuse Treatment (ICD-10-PCS; principal; 2019-01-26)
DX: F11.23 Opioid dependence with withdrawal (principal); F10.20 Alcohol dependence, uncomplicated; F13.230 Sedative, hypnotic or anxiolytic dependence with withdrawal, uncomplicated; F17.210 Nicotine dependence, cigarettes, uncomplicated; J45.22 Mild intermittent asthma with status asthmaticus
CPT/HCPCS: 36415; 80053; 85027; 86593; J0735

== ENCOUNTER 2019-03-24 19:38 | Inpatient (IN) | payer OTHER ==
[2019-03-24 20:39] VITALS: BMI 27.8
--- NOTE | 2019-03-24 22:01 | HP ---
CIWA Score Nausea/Vomitin (vomitin g x 2) Muscle Tremors: 4-Moderate,w/Arms Extend Anxiety: 4-Mod. Anxious/Guarded Agitation: 3 Paroxysmal Sweats: 2 Orientation: 1-Uncertain about Date Tacttile Disturbances: 0-None Auditory Disturbances: 0-None Visual Disturbances: 0-None Headache: 2-Mild CIWA-Ar Total Score: 18 - Admission Criteria OASAS Guidelines: Admission for Medically Managed Detox: Requires at least one of the followin. CIWA greater than 12 2. Seizures within the past 24 hours 3. Delirium tremens within the past 24 hours 4. Hallucinations within the past 24 hours 5. Acute intervention needed for co occurring medical disorder 6. Acute intervention needed for co occurring psychiatric disorder 7. Severe withdrawal that cannot be handled at a lower level of care (continued vomiting, continued diarrhea, abnormal vital signs) requiring intravenous medication and/or fluids 8. Admitting History and Physical - Smoking History Smoking history: Current every day smoker Have you smoked in the past 12 months: Yes Aproximately how many cigarettes per day: 20 - Alcohol/Substance Use Hx Alcohol Use: Yes Admission ROS [facility] Chief Complaint: Heroin and Xanax withdrawal symptoms; On methadone therapy Allergies/Adverse Reactions: Allergies Allergy/AdvReac Type Severity Reaction Status Date / Time No Known Drug Allergies Allergy Verified 03/24/19 20:24 Bleach (Sodium Hypochlorite) AdvReac Mild Itching Verified 03/24/19 20:24 History of Present Illness: 38 years old male with 14 years of heroin dependence and 10 years of benzodiazepine dependence is seeking admission to detox. Patient has been in previous multiple detox and reports 2 years of sobriety. He reports history of asthma, endocarditis and denies suicidal ideation at this time. Patient reports that he is on Methadone 60mg tablet oral daily at [facility]. Dose is yet to verified by the nurse. Exam Limitations: No Limitations - Ebola screening Have you traveled outside of the country in the last 21 days: No (N) Have you had contact with anyone from an Ebola affected area: No Do you have a fever: No - Review of Systems Constitutional: Chills, Loss of Appetite, Night Sweats, Changes in sleep EENT: reports: No Symptoms Reported Respiratory: reports: No Symptoms reported Cardiac: reports: No Symptoms Reported GI: reports: Nausea, Poor Appetite, Poor Fluid Intake, Vomiting, Abdominal cramping : reports: No Symptoms Reported Musculoskeletal: reports: Back Pain, Muscle Pain Integumentary: reports: Dryness, Flushing Neuro: reports: Tremors Endocrine: reports: No Symptoms Reported Hematology: reports: No Symptoms Reported Psychiatric: reports: Mood/Affect Appropiate, Orientated x3, Anxious Other Systems: Reviewed and Negative Patient History - Patient Medical History Hx Anemia: No Hx Asthma: Yes Hx Chronic Obstructive Pulmonary Disease (COPD): No Hx Cancer: No Hx Cardiac Disorders: Yes (Endocarditis) Hx Congestive Heart Failure: No Hx Hypertension: No Hx Hypercholesterolemia: No Hx Pacemaker: No HX Cerebrovascular Accident: No Hx Seizures: No Hx Dementia: No Hx Diabetes: No Hx Gastrointestinal Disorders: No Hx Liver Disease: No Hx Genitourinary Disorders: No Hx Sexually Transmitted Disorders: No Hx Renal Disease (ESRD): No Hx Thyroid Disease: No Hx Human Immunodeficiency Virus (HIV): No (Negative 2018) Hx Hepatitis C: No Hx Depression: No Hx Suicide Attempt: No Hx Bipolar Disorder: No Hx Schizophrenia: No - Patient Surgical History Past Surgical History: Yes Hx Neurologic Surgery: No Hx Cataract Extraction: No Hx Cardiac Surgery: No Hx Lung Surgery: No Hx Abdominal Surgery: No Hx Appendectomy: Yes (2002) Hx Cholecystectomy: No Hx Genitourinary Surgery: No Hx Orthopedic Surgery: No Hx Hysterectomy: No Anesthesia Reaction: No - PPD History Previous Implant?: Yes Documented Results: Negative w/o proof Implanted On Prior R Admission?: No PPD to be Administered?: Yes - Reproductive History Patient is a Female of Child Bearing Age (11 -55 yrs old): No (male) - Smoking Cessation Smoking history: Current every day smoker Have you smoked in the past 12 months: Yes Aproximately how many cigarettes per day: 20 Cigars Per Day: 0 Hx Chewing Tobacco Use: No Initiated information on smoking cessation: Yes 'Breaking Loose' booklet given: 03/24/19 - Substance & Tx. History Hx Alcohol Use: No Hx Substance Use: Yes Substance Use Type: Cocaine, Heroin, Marijuana, Opiates Hx Substance Use Treatment: Yes ([place], [place]) - Substances abused Alprazolam (Xanax) Substance route: Oral Frequency: Daily Amount used: 5 of 2 mg Age of first use: 28 Date of last use: 03/23/19 Heroin Substance route: Injection Frequency: Daily Amount used: 20 bags Age of first use: 20 Date of last use: 03/22/19 Cocaine Substance route: Inhalation Frequency: 1-2 times per week Amount used: 1000 thousand dollars. Age of first use: 28 Date of last use: 03/21/19 Admission Physical Exam [facility] - Vital Signs Vital Signs: Vital Signs - 24 hr 03/24/19 20:23 Temperature 98.0 F Pulse Rate 82 Respiratory 20 Rate Blood Pressure 109/72 - Physical General Appearance: Yes: Moderate Distress, Tremorous, Irritable, Sweating, Anxious HEENTM: Yes: Within Normal Limits Respiratory: Yes: Lungs Clear, Normal Breath Sounds, No Respiratory Distress Neck: Yes: Supple Breast: Yes: Breast Exam Deferred Cardiology: Yes: Regular Rhythm, Tachycardia Abdominal: Yes: Normal Bowel Sounds Genitourinary: Yes: Within Normal Limits Back: Yes: Normal Inspection Musculoskeletal: Yes: Back pain, Muscle Pain Extremities: Yes: Tremors Neurological: Yes: Normal Mood/Affect Integumentary: Yes: Warm Lymphatic: Yes: Within Normal Limits - Diagnostic (1) Endocarditis Current Visit: Yes Status: Chronic Qualifiers: Endocarditis type: infective Infective endocarditis organism: bacterial (2) Nicotine dependence Current Visit: Yes Status: Chronic Qualifiers: Nicotine product type: cigarettes Substance use status: uncomplicated Qualified Code(s): F17.210 - Nicotine dependence, cigarettes, uncomplicated (3) Opioid dependence on agonist therapy Current Visit: Yes Status: Acute (4) Xanax use disorder, severe Current Visit: Yes Status: Acute (5) Asthma Current Visit: Yes Status: Chronic Qualifiers: Asthma severity: mild Asthma persistence: intermittent Asthma complication type: with status asthmaticus Qualified Code(s): J45.22 - Mild intermittent asthma with status asthmaticus (6) Methadone maintenance therapy patient Current Visit: Yes Status: Chronic Cleared for Admission [facility] - Detox or Rehab [facility] Level of Care: Medically Managed Detox Regimen/Protocol: Valium Breathalyzer - Breathalyzer Breathalyzer: 0 Urine Drug Screen - Test Device Lot number: [id number] Expiration date: 11/14/20 - Control Is test valid?: Yes - Results Drug screen NEGATIVE: No Urine drug screen results: JOE-Cocaine, MOP-Opiates, OXY-Oxycodone, MTD- Methadone, BZO-Benzodiazepines Inpatient Rehab Admission - Rehab Decision to Admit Inpatient rehab admission?: No
[2019-03-24] MEDS ORDERED: hydrOXYzine PAMOATE 25 MG CAPSULE (FP) PO PRN (22:08)
[2019-03-24] MEDS ORDERED: MAG HYDROX/AL HYDROX/SIMETH 30 ML UNIT-DOSE CUP PO PRN (22:08)
[2019-03-24] MEDS ORDERED: MAGNESIUM HYDROX 2400MG/30ML ORAL SUSPENSION 30 ML CUP PO PRN (22:08)
[2019-03-24] MEDS ORDERED: MAGNESIUM CITRATE 300 ML BOTTLE PO PRN (22:08)
[2019-03-24] MEDS ORDERED: ACETAMINOPHEN 325 MG TABLET (FP) PO PRN ×2 (22:08)
[2019-03-24] MEDS ORDERED: MENTHOL/PHENOL 1 EACH UD MM PRN (22:08)
[2019-03-24] MEDS ORDERED: BISMUTH SUBSALICYLATE 524 MG/30 ML UD PO PRN (22:08)
[2019-03-24] MEDS ORDERED: IBUPROFEN 400 MG TABLET (FP) PO PRN (22:08)
[2019-03-24] MEDS ORDERED: ALBUTEROL SO4 8 GM HFA INHALER IH PRN (22:09)
[2019-03-24] MEDS: diazePAM 5 MG TABLET PO SCH (23:55)
[2019-03-24] MEDS: MELATONIN 5 MG TABLETS PO PRN (23:55)
[2019-03-25] MEDS: diazePAM 5 MG TABLET PO SCH ×3 (05:19→22:27)
[2019-03-25] MEDS: NICOTINE POLACRILEX 2 MG GUM BUC PRN ×3 (05:22→22:27)
[2019-03-25] MEDS: diazePAM 5 MG TABLET PO PRN ×3 (07:55→19:41)
[2019-03-25] MEDS ORDERED: METHADONE HCL 10 MG TABLET PO ONE (09:10)
[2019-03-25] MEDS ORDERED: METHADONE 40 MG, METHADONE 20 MG PO ONE (10:00)
[2019-03-25] MEDS: NICOTINE 14 MG/24 HOURS TOPICAL PATCH TD SCH (10:35)
[2019-03-25] MEDS: PRENATAL VITAMINS W/ FOLIC ACID TABLET (FP) PO SCH (10:35)
[2019-03-25] MEDS ORDERED: METHADONE HCL 10 MG TABLET ONE (10:36)
[2019-03-25] MEDS ORDERED: METHADONE HCL 40 MG DISPERSABLE TABLET ONE (10:36)
--- NOTE | 2019-03-25 10:57 | EKG ---
Test Reason : Blood Pressure : / mmHG Vent. Rate : 074 BPM Atrial Rate : 074 BPM P-R Int : 138 ms QRS Dur : 098 ms QT Int : 406 ms P-R-T Axes : 026 055 048 degrees QTc Int : 450 ms NORMAL SINUS RHYTHM NORMAL ECG NO PREVIOUS ECGS AVAILABLE Confirmed by DANIEL IGNACIO, LANG ([id number]) on 03/25/2019 10:56:57 AM Referred By: Price Cavazos Confirmed By:LANG SANCHEZ MD
[2019-03-25 12:01] LABS: HEMATOCRIT 36.4 % (35.4-49); HEMOGLOBIN 12.2 GM/dL (11.7-16.9); MCH 29.4 pg (25.7-33.7); MCHC 33.5 g/dl (32.0-35.9); MEAN CELL VOLUME 87.8 fl (80-96); MEAN PLT VOLUME 8.5 fl (7.5-11.1); PLATELET COUNT 244 K/MM3 (134-434); RBC 4.15 M/mm3 (4.00-5.60); RDW 13.6 % (11.9-15.9)
[2019-03-25 12:07] LABS: ALBUMIN 3.1 g/dl (3.4-5.0); BILIRUBIN,TOTAL 0.2 mg/dL (0.2-1); BLOOD UREA NITROGEN 11.2 mg/dL (7-18); CALCIUM 8.6 mg/dL (8.5-10.1); CREATININE 0.7 mg/dL (0.55-1.3); POTASSIUM 3.7 mmol/L (3.5-5.1); TOT PROT 6.2 g/dl (6.4-8.2)
--- NOTE | 2019-03-25 12:08 | PN ---
S CIWA - CIWA Score Nausea/Vomitin-No Nausea/No Vomiting Muscle Tremors: 3 Anxiety: 3 Agitation: 4-Moderately Restless Paroxysmal Sweats: 3 Orientation: 0-Oriented Tacttile Disturbances: 0-None Auditory Disturbances: 0-None Visual Disturbances: 0-None Headache: 0-None Present CIWA-Ar Total Score: 13 BHS Progress Note (SOAP) Subjective: sweats shakes restless irritable anxiety Objective: 03/25/19 12:08 Vital Signs Temperature 97.8 F 03/25/19 10:16 Pulse Rate 77 03/25/19 10:16 Respiratory Rate 18 03/25/19 10:16 Blood Pressure 104/59 L 03/25/19 10:16 O2 Sat by Pulse Oximetry (%) Laboratory Tests 03/25/19 03/25/19 08:45 08:45 WBC 4.0 RBC 4.15 Hgb 12.2 Hct 36.4 MCV 87.8 MCH 29.4 MCHC 33.5 RDW 13.6 Plt Count 244 MPV 8.5 Sodium 142 Potassium 3.7 Chloride 106 Carbon Dioxide 30 Anion Gap 6 L BUN 11.2 Creatinine 0.7 Est GFR (CKD-EPI)AfAm 140.71 Est GFR (CKD-EPI)NonAf 121.41 Random Glucose 87 Calcium 8.6 Total Bilirubin 0.2 AST 16 ALT 21 Alkaline Phosphatase 114 Total Protein 6.2 L Albumin 3.1 L labs noted aaox3 ambulating no acute distress Assessment: 03/25/19 12:08 withdrawals Plan: continue detox increase fluids
[2019-03-25] MEDS ORDERED: FLU VACCINE QUAD 60 MCG/0.5 ML (MDV 19-20) IM ONE (12:48)
[2019-03-25] MEDS: THIAMINE HCL 100 MG TABLET (FP) PO SCH (22:27)
[2019-03-26] MEDS: diazePAM 5 MG TABLET PO PRN ×4 (02:08→19:56)
[2019-03-26] MEDS ORDERED: METHADONE HCL 10 MG TABLET ONE (05:35)
[2019-03-26] MEDS ORDERED: METHADONE HCL 40 MG DISPERSABLE TABLET ONE (05:36)
[2019-03-26] MEDS: diazePAM 5 MG TABLET PO SCH ×2 (05:43→17:10)
[2019-03-26] MEDS: METHADONE 40 MG, METHADONE 20 MG PO SCH (05:43)
[2019-03-26] MEDS ORDERED: METHADONE HCL 40 MG DISPERSABLE TABLET PO SCH (06:00)
--- NOTE | 2019-03-26 09:51 | PN ---
S CIWA - CIWA Score Nausea/Vomitin-No Nausea/No Vomiting Muscle Tremors: 3 Anxiety: 3 Agitation: 3 Paroxysmal Sweats: 3 Orientation: 0-Oriented Tacttile Disturbances: 0-None Auditory Disturbances: 0-None Visual Disturbances: 0-None Headache: 0-None Present CIWA-Ar Total Score: 12 S Progress Note (SOAP) Subjective: agitation sweats shakes interrupted sleep Objective: 03/26/19 09:49 Vital Signs Temperature 97.5 F L 03/26/19 09:40 Pulse Rate 86 03/26/19 09:40 Respiratory Rate 18 03/26/19 09:40 Blood Pressure 123/70 03/26/19 09:40 O2 Sat by Pulse Oximetry (%) Laboratory Tests 03/25/19 03/25/19 03/25/19 08:45 08:45 08:45 WBC 4.0 RBC 4.15 Hgb 12.2 Hct 36.4 MCV 87.8 MCH 29.4 MCHC 33.5 RDW 13.6 Plt Count 244 MPV 8.5 Sodium 142 Potassium 3.7 Chloride 106 Carbon Dioxide 30 Anion Gap 6 L BUN 11.2 Creatinine 0.7 Est GFR (CKD-EPI)AfAm 140.71 Est GFR (CKD-EPI)NonAf 121.41 Random Glucose 87 Calcium 8.6 Total Bilirubin 0.2 AST 16 ALT 21 Alkaline Phosphatase 114 Total Protein 6.2 L Albumin 3.1 L RPR Titer Nonreactive labs noted aaox3 ambulating no acute distress Assessment: 03/26/19 09:50 withdrawals Plan: continue detox d/c in am
[2019-03-26] MEDS: NICOTINE 14 MG/24 HOURS TOPICAL PATCH TD SCH (10:03)
[2019-03-26] MEDS: PRENATAL VITAMINS W/ FOLIC ACID TABLET (FP) PO SCH (10:03)
[2019-03-26] MEDS: METHOCARBAMOL 500 MG TABLET PO PRN ×2 (10:05→19:56)
[2019-03-26] MEDS: NICOTINE POLACRILEX 2 MG GUM BUC PRN ×5 (10:05→22:09)
[2019-03-26] MEDS: MELATONIN 5 MG TABLETS PO PRN (22:08)
[2019-03-26] MEDS: THIAMINE HCL 100 MG TABLET (FP) PO SCH (22:08)
[2019-03-27] MEDS: diazePAM 5 MG TABLET PO PRN (00:39)
[2019-03-27] MEDS ORDERED: METHADONE HCL 10 MG TABLET ONE (05:03)
[2019-03-27] MEDS ORDERED: METHADONE HCL 40 MG DISPERSABLE TABLET ONE (05:04)
[2019-03-27] MEDS: METHADONE 40 MG, METHADONE 20 MG PO SCH (05:19)
[2019-03-27] MEDS ORDERED: diazePAM 5 MG TABLET PO ONE (06:00)
[2019-03-27 06:19] VITALS: BP 100/58; PULSE 68; TEMP 97.5
--- NOTE | 2019-03-27 08:31 | DS ---
[facility] Detox Discharge Summary Admission Date: 03/24/19 Discharge Date: 03/27/19 - History Present History: Opioid Dependence, Sedative Dependence, MMTP - Physical Exam Results Vital Signs: Vital Signs Temperature 97.5 F L 03/27/19 06:00 Pulse Rate 68 03/27/19 06:00 Respiratory Rate 18 03/27/19 06:00 Blood Pressure 100/58 L 03/27/19 06:00 O2 Sat by Pulse Oximetry (%) Pertinent Admission Physical Exam Findings: pt arrived in withdrawals Vital Signs Temperature 97.5 F L 03/27/19 06:00 Pulse Rate 68 03/27/19 06:00 Respiratory Rate 18 03/27/19 06:00 Blood Pressure 100/58 L 03/27/19 06:00 O2 Sat by Pulse Oximetry (%) Laboratory Tests 03/25/19 03/25/19 03/25/19 08:45 08:45 08:45 WBC 4.0 RBC 4.15 Hgb 12.2 Hct 36.4 MCV 87.8 MCH 29.4 MCHC 33.5 RDW 13.6 Plt Count 244 MPV 8.5 Sodium 142 Potassium 3.7 Chloride 106 Carbon Dioxide 30 Anion Gap 6 L BUN 11.2 Creatinine 0.7 Est GFR (CKD-EPI)AfAm 140.71 Est GFR (CKD-EPI)NonAf 121.41 Random Glucose 87 Calcium 8.6 Total Bilirubin 0.2 AST 16 ALT 21 Alkaline Phosphatase 114 Total Protein 6.2 L Albumin 3.1 L RPR Titer Nonreactive pt is aaox3 ambulating no acute distress - Treatment Hospital Course: Detox Protocol Followed, Detoxed Safely, Responded well, Discharged Condition Good, Rehab Referral Accepted Patient has Accepted a Rehab Referral to: pt referred to MMT program - Medication Discharge Medications: Ambulatory Orders Albuterol Sulfate [Proair Hfa -] 1 inh IH PRN PRN 06/09/15 Gabapentin 300 mg PO TID 01/02/19 - Diagnosis (1) Asthma Current Visit: Yes Status: Chronic Qualifiers: Asthma severity: mild Asthma persistence: intermittent Asthma complication type: with status asthmaticus Qualified Code(s): J45.22 - Mild intermittent asthma with status asthmaticus (2) Endocarditis Current Visit: No Status: Chronic Qualifiers: Endocarditis type: infective Infective endocarditis organism: bacterial (3) Methadone maintenance therapy patient Current Visit: Yes Status: Chronic (4) Nicotine dependence Current Visit: Yes Status: Chronic Qualifiers: Nicotine product type: cigarettes Substance use status: uncomplicated Qualified Code(s): F17.210 - Nicotine dependence, cigarettes, uncomplicated (5) Alcohol dependence with uncomplicated withdrawal Current Visit: No Status: Acute (6) Severe benzodiazepine use disorder Current Visit: Yes Status: Chronic (7) ADHD (attention deficit hyperactivity disorder) Current Visit: No Status: Chronic Qualifiers: Attention deficit-hyperactivity disorder type: unspecified Qualified Code(s ): F90.9 - Attention-deficit hyperactivity disorder, unspecified type - AMA Did Patient Leave Against Medical Advice: No
== END 2019-03-27 10:55 | disposition other institution (70) | DRG 773 ==
LOC: YASAS 19:38 → Y6N 21:59
PROVIDERS: ADMIT Allergy & Immunology; ATTEND Allergy & Immunology
PROC: HZ2ZZZZ Detoxification Services for Substance Abuse Treatment (ICD-10-PCS; principal; 2019-03-24)
DX: F11.23 Opioid dependence with withdrawal (principal); F13.20 Sedative, hypnotic or anxiolytic dependence, uncomplicated; F14.10 Cocaine abuse, uncomplicated; F17.210 Nicotine dependence, cigarettes, uncomplicated; F90.9 Attention-deficit hyperactivity disorder, unspecified type; I38 Endocarditis, valve unspecified; B96.89 Other specified bacterial agents as the cause of diseases classified elsewhere; J45.22 Mild intermittent asthma with status asthmaticus; Z91.048 Other nonmedicinal substance allergy status
CPT/HCPCS: 36415; 80053; 85027; 86593; 93005; 93010

== ENCOUNTER 2019-03-27 12:43 | Inpatient (IN) | payer OTHER ==
[2019-03-27 13:18] VITALS: BMI 29.3
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
[2019-03-27] MEDS ORDERED: ACETAMINOPHEN 325 MG TABLET (FP) PO PRN (16:15)
[2019-03-27] MEDS ORDERED: P-EPHED 60MG/TRIPROLIDI 2.5MG TABLET PO PRN (16:15)
[2019-03-27] MEDS ORDERED: MAGNESIUM HYDROX 2400MG/30ML ORAL SUSPENSION 30 ML CUP PO PRN (16:15)
[2019-03-27] MEDS ORDERED: guaiFENesin 200 MG/10 ML 10 ML UNIT-DOSE CUPS PO PRN (16:15)
[2019-03-27] MEDS ORDERED: MAG HYDROX/AL HYDROX/SIMETH 30 ML UNIT-DOSE CUP PO PRN (16:15)
[2019-03-27] MEDS ORDERED: MENTHOL/PHENOL 1 EACH UD MM PRN (16:15)
[2019-03-27] MEDS ORDERED: MAGNESIUM CITRATE 300 ML BOTTLE PO PRN (16:15)
[2019-03-27] MEDS ORDERED: IBUPROFEN 400 MG TABLET (FP) PO PRN (16:15)
[2019-03-27] MEDS ORDERED: ALBUTEROL SO4 8 GM HFA INHALER IH PRN (16:16)
[2019-03-27] MEDS: THIAMINE HCL 100 MG TABLET (FP) PO SCH (22:13)
[2019-03-27] MEDS: MELATONIN 5 MG TABLETS PO PRN (22:21)
[2019-03-28] MEDS ORDERED: METHADONE HCL 10 MG TABLET PO SCH (08:15)
[2019-03-28] MEDS ORDERED: METHADONE HCL 10 MG TABLET ONE (09:34)
[2019-03-28] MEDS ORDERED: METHADONE HCL 40 MG DISPERSABLE TABLET ONE (09:34)
[2019-03-28] MEDS: METHADONE 40 MG, METHADONE 20 MG PO SCH (09:59)
[2019-03-28] MEDS: PRENATAL VITAMINS W/ FOLIC ACID TABLET (FP) PO SCH (10:00)
[2019-03-28] MEDS: GABAPENTIN 300 MG CAPSULE (FP) PO SCH ×2 (13:11→21:12)
[2019-03-28] MEDS: NICOTINE 14 MG/24 HOURS TOPICAL PATCH TD SCH (13:11)
[2019-03-28] MEDS: NICOTINE POLACRILEX 2 MG GUM BUC PRN ×3 (13:12→21:14)
--- NOTE | 2019-03-28 18:36 | CONSULT ---
[facility] Psychiatric Consult - Data Date of interview: 03/28/19 Admission source: Transfer from [address] [place] [address]. Identifying data: Readmission to [facility] and transition to [facility] for rehabilitative care (just completed detoxification at [address] [place] [address]) for preservation of sobriety + management of co-morbid mood disorder. Patient is single, no dependents, domiciled and employed (self-sufficient). Substance Abuse History: Discussed with the patient. Details in current [facility] report as follows : Smoking history: Current every day smoker. Have you smoked in the past 12 months: Yes. Aproximately how many cigarettes per day: 20. Cigars Per Day: 0. Hx Chewing Tobacco Use: No. Initiated information on smoking cessation: No. - Substances abused. Alprazolam (Xanax). Other ( specify): 2mg. Substance route: Oral. Frequency: Daily. Amount used: 6 tabs. Age of first use: 28. Date of last use: 03/23/19. Heroin. Substance route: Injection. Frequency: Daily. Amount used: 10-20 bags. Age of first use : 20. Date of last use: 03/22/19. Cocaine. Substance route: Inhalation. Frequency: 1-2 times per week. Amount used: 1000 thousand dollars. Age of first use: 28. Date of last use: 03/21/19 Medical History: Remarkable for endocarditis, bronchial asthma and a history of appendectomy. Psychiatric History: Patient endorses a distant history of psychiatric hospitalizations (childhood/adolescence). Kept few reminiscences from that period. Wsa diagnosed, at the time with ADHD and MDD (precipitant : of father). Revised, in recent years to bipolar disorder. Traeted with oxcarbazepine + gabapentin. Mr Nieves states that he used to see a psychiatrist at [facility] (no show for more than seven months, as per self-report). Patient is currently on methadone maintenance (60 mg/day) at the [facility]MTP program in [facility]. Denies history of suicide attempts. Physical/Sexual Abuse/Trauma History: Patient denies. Additional Comment: Urine drug screen results: JOE-Cocaine, MTD-Methadone, BZO- Benzodiazepines. Noted. Mental Status Exam - Mental Status Exam Alert and Oriented to: Time, Place, Person Cognitive Function: Good Patient Appearance: Well Groomed (covered with tattoos) Mood: Hopeful, Euthymic Affect: Appropriate, Normal Range Patient Behavior: Appropriate, Cooperative Speech Pattern: Clear Voice Loudness: Normal Thought Process: Intact, Goal Oriented Thought Disorder: Not Present Hallucinations: Denies Suicidal Ideation: Denies Homicidal Ideation: Denies Insight/Judgement: Fair Sleep: Well Appetite: Good Muscle strength/Tone: Normal Gait/Station: Normal Psychiatric Findings - Problem List ([place] 1, 2,3) (1) Opioid dependence on agonist therapy Current Visit: Yes Status: Chronic (2) Benzodiazepine dependence Current Visit: Yes Status: Chronic (3) Cocaine abuse, episodic use Current Visit: Yes Status: Chronic (4) Nicotine dependence Current Visit: Yes Status: Chronic Qualifiers: Nicotine product type: cigarettes Substance use status: uncomplicated Qualified Code(s): F17.210 - Nicotine dependence, cigarettes, uncomplicated (5) ADHD (attention deficit hyperactivity disorder) Current Visit: No Status: Chronic Qualifiers: Attention deficit-hyperactivity disorder type: unspecified Qualified Code(s ): F90.9 - Attention-deficit hyperactivity disorder, unspecified type Comment: By history. No symptoms at this time. (6) History of bipolar disorder Current Visit: Yes Status: Chronic (7) Non-compliance Current Visit: Yes Status: Chronic - Initial Treatment Plan Initial Treatment Plan: Psychoeducation. Records ([facility]) reviewed. Psychoeducation. NA meetings. Patient expresses no interest for resumption of trileptal. Observation.
[2019-03-28] MEDS: THIAMINE HCL 100 MG TABLET (FP) PO SCH (21:12)
[2019-03-28] MEDS: METHOCARBAMOL 500 MG TABLET PO SCH (21:12)
[2019-03-28] MEDS: hydrOXYzine PAMOATE 50 MG CAPSULE (FP) PO PRN (21:13)
[2019-03-29] MEDS ORDERED: METHADONE HCL 10 MG TABLET ONE (06:03)
[2019-03-29] MEDS ORDERED: METHADONE HCL 40 MG DISPERSABLE TABLET ONE (06:03)
[2019-03-29] MEDS: METHADONE 40 MG, METHADONE 20 MG PO SCH (06:06)
[2019-03-29] MEDS: GABAPENTIN 300 MG CAPSULE (FP) PO SCH ×3 (06:06→21:20)
[2019-03-29] MEDS: NICOTINE POLACRILEX 2 MG GUM BUC PRN ×4 (06:07→21:21)
[2019-03-29] MEDS: hydrOXYzine PAMOATE 50 MG CAPSULE (FP) PO PRN ×2 (09:55→21:20)
[2019-03-29] MEDS: PRENATAL VITAMINS W/ FOLIC ACID TABLET (FP) PO SCH (09:55)
[2019-03-29] MEDS: NICOTINE 14 MG/24 HOURS TOPICAL PATCH TD SCH (09:55)
[2019-03-29] MEDS: METHOCARBAMOL 500 MG TABLET PO SCH ×2 (09:57→21:20)
[2019-03-29 15:28] LABS: URINE APPEARANCE CLEAR; URINE BILIRUBIN NEGATIVE (NEGATIVE); URINE COLOR YELLOW; URINE GLUCOSE (UA) NEGATIVE (NEGATIVE); URINE KETONE NEGATIVE (NEGATIVE); URINE LEUK ESTERASE NEGATIVE (NEGATIVE); URINE NITRITE NEGATIVE (NEGATIVE); URINE PROTEIN NEGATIVE (NEGATIVE); URINE UROBILINOGEN 0.2 mg/dL (0.2-1.0)
[2019-03-29] MEDS: THIAMINE HCL 100 MG TABLET (FP) PO SCH (21:20)
[2019-03-30] MEDS ORDERED: METHADONE HCL 40 MG DISPERSABLE TABLET ONE (06:07)
[2019-03-30] MEDS ORDERED: METHADONE HCL 10 MG TABLET ONE (06:07)
[2019-03-30] MEDS: GABAPENTIN 300 MG CAPSULE (FP) PO SCH ×3 (06:17→21:30)
[2019-03-30] MEDS: NICOTINE POLACRILEX 2 MG GUM BUC PRN ×3 (06:17→21:29)
[2019-03-30] MEDS: METHADONE 40 MG, METHADONE 20 MG PO SCH (06:17)
[2019-03-30] MEDS: METHOCARBAMOL 500 MG TABLET PO SCH ×2 (09:40→21:30)
[2019-03-30] MEDS: NICOTINE 14 MG/24 HOURS TOPICAL PATCH TD SCH (09:40)
[2019-03-30] MEDS: PRENATAL VITAMINS W/ FOLIC ACID TABLET (FP) PO SCH (09:40)
[2019-03-30] MEDS: MELATONIN 5 MG TABLETS PO PRN (21:30)
[2019-03-30] MEDS: THIAMINE HCL 100 MG TABLET (FP) PO SCH (21:30)
[2019-03-31] MEDS ORDERED: METHADONE HCL 10 MG TABLET ONE (06:03)
[2019-03-31] MEDS ORDERED: METHADONE HCL 40 MG DISPERSABLE TABLET ONE (06:03)
[2019-03-31] MEDS: METHADONE 40 MG, METHADONE 20 MG PO SCH (06:12)
[2019-03-31] MEDS: GABAPENTIN 300 MG CAPSULE (FP) PO SCH ×3 (06:12→21:30)
[2019-03-31] MEDS: NICOTINE POLACRILEX 2 MG GUM BUC PRN ×3 (06:13→17:34)
[2019-03-31] MEDS: PRENATAL VITAMINS W/ FOLIC ACID TABLET (FP) PO SCH (09:23)
[2019-03-31] MEDS: NICOTINE 14 MG/24 HOURS TOPICAL PATCH TD SCH (09:23)
[2019-03-31] MEDS: METHOCARBAMOL 500 MG TABLET PO SCH ×2 (09:23→21:30)
[2019-03-31] MEDS ORDERED: LOPERAMIDE HCL 2 MG CAPSULE PO PRN (10:16)
[2019-03-31] MEDS ORDERED: BENZOCAINE 20 % GEL TUBE MM PRN (10:40)
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
[2019-03-31] MEDS: LIDOCAINE 5% TOPICAL PATCH TP SCH (15:56)
[2019-03-31] MEDS: THIAMINE HCL 100 MG TABLET (FP) PO SCH (21:30)
[2019-03-31] MEDS: METHYL SALICYLATE/MENTHOL OINT 30 GM TUBE TP SCH (21:31)
[2019-03-31] MEDS: LIDOCAINE PATCH REMOVAL MC SCH (21:31)
[2019-04-01] MEDS ORDERED: METHADONE HCL 40 MG DISPERSABLE TABLET ONE (04:08)
[2019-04-01] MEDS ORDERED: METHADONE HCL 10 MG TABLET ONE (04:08)
[2019-04-01] MEDS: METHADONE 40 MG, METHADONE 20 MG PO SCH (06:22)
[2019-04-01] MEDS: GABAPENTIN 300 MG CAPSULE (FP) PO SCH ×3 (06:23→21:37)
[2019-04-01] MEDS: NICOTINE POLACRILEX 2 MG GUM BUC PRN ×3 (06:23→21:38)
[2019-04-01] MEDS: PRENATAL VITAMINS W/ FOLIC ACID TABLET (FP) PO SCH (10:08)
[2019-04-01] MEDS: NICOTINE 14 MG/24 HOURS TOPICAL PATCH TD SCH (10:08)
[2019-04-01] MEDS: IBUPROFEN 600 MG TABLET (FP) PO PRN ×3 (10:09→21:36)
[2019-04-01] MEDS: METHOCARBAMOL 500 MG TABLET PO SCH ×2 (10:10→21:38)
[2019-04-01] MEDS: LIDOCAINE 5% TOPICAL PATCH TP SCH (10:11)
[2019-04-01] MEDS: METHYL SALICYLATE/MENTHOL OINT 30 GM TUBE TP SCH (10:12)
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
[2019-04-01] MEDS ORDERED: ACETAMINOPHEN 325 MG TABLET (FP) PO PRN (11:44)
[2019-04-01] MEDS: AMOXICILLIN 500 MG CAPSULE (FP) PO SCH ×2 (12:20→21:37)
[2019-04-01] MEDS: CHLORHEXIDINE GLUCONATE 118 ML MOUTHWASH MM SCH ×2 (14:21→21:37)
[2019-04-01] MEDS: THIAMINE HCL 100 MG TABLET (FP) PO SCH (21:35)
[2019-04-01] MEDS: LIDOCAINE PATCH REMOVAL MC SCH (21:37)
[2019-04-01] MEDS: MELATONIN 5 MG TABLETS PO PRN (21:38)
[2019-04-02] MEDS ORDERED: METHADONE HCL 10 MG TABLET ONE (06:03)
[2019-04-02] MEDS ORDERED: METHADONE HCL 40 MG DISPERSABLE TABLET ONE (06:03)
[2019-04-02] MEDS: GABAPENTIN 300 MG CAPSULE (FP) PO SCH ×3 (06:06→21:30)
[2019-04-02] MEDS: METHADONE 40 MG, METHADONE 20 MG PO SCH (06:06)
[2019-04-02] MEDS: NICOTINE POLACRILEX 2 MG GUM BUC PRN ×3 (06:07→21:31)
[2019-04-02] MEDS: NICOTINE 14 MG/24 HOURS TOPICAL PATCH TD SCH (09:38)
[2019-04-02] MEDS: METHOCARBAMOL 500 MG TABLET PO SCH ×2 (09:39→21:30)
[2019-04-02] MEDS: PRENATAL VITAMINS W/ FOLIC ACID TABLET (FP) PO SCH (09:39)
[2019-04-02] MEDS: AMOXICILLIN 500 MG CAPSULE (FP) PO SCH ×2 (09:39→21:30)
[2019-04-02] MEDS: IBUPROFEN 600 MG TABLET (FP) PO PRN ×2 (09:39→21:32)
[2019-04-02] MEDS: METHYL SALICYLATE/MENTHOL OINT 30 GM TUBE TP SCH (10:43)
[2019-04-02] MEDS: LIDOCAINE 5% TOPICAL PATCH TP SCH (10:44)
[2019-04-02] MEDS: CHLORHEXIDINE GLUCONATE 118 ML MOUTHWASH MM SCH ×2 (10:44→21:30)
[2019-04-02] MEDS: hydrOXYzine PAMOATE 50 MG CAPSULE (FP) PO PRN (13:07)
--- NOTE | 2019-04-02 14:13 | PN ---
S Progress Note Note: patient seen by the dentist, agreed with treatment as ordered. Patient instructed to seek dental care upon discharge.
[2019-04-02] MEDS: THIAMINE HCL 100 MG TABLET (FP) PO SCH (21:29)
[2019-04-02] MEDS: LIDOCAINE PATCH REMOVAL MC SCH (21:30)
[2019-04-02] MEDS: MELATONIN 5 MG TABLETS PO PRN (21:30)
[2019-04-03] MEDS ORDERED: METHADONE HCL 10 MG TABLET ONE (05:58)
[2019-04-03] MEDS ORDERED: METHADONE HCL 40 MG DISPERSABLE TABLET ONE (05:58)
[2019-04-03] MEDS: METHADONE 40 MG, METHADONE 20 MG PO SCH (06:13)
[2019-04-03] MEDS: GABAPENTIN 300 MG CAPSULE (FP) PO SCH ×3 (06:13→21:27)
[2019-04-03] MEDS: NICOTINE 14 MG/24 HOURS TOPICAL PATCH TD SCH (10:33)
[2019-04-03] MEDS: PRENATAL VITAMINS W/ FOLIC ACID TABLET (FP) PO SCH (10:33)
[2019-04-03] MEDS: AMOXICILLIN 500 MG CAPSULE (FP) PO SCH ×2 (10:33→21:27)
[2019-04-03] MEDS: METHOCARBAMOL 500 MG TABLET PO SCH ×2 (10:33→21:27)
[2019-04-03] MEDS: LIDOCAINE 5% TOPICAL PATCH TP SCH (10:34)
[2019-04-03] MEDS: METHYL SALICYLATE/MENTHOL OINT 30 GM TUBE TP SCH (10:35)
[2019-04-03] MEDS: CHLORHEXIDINE GLUCONATE 118 ML MOUTHWASH MM SCH ×2 (10:35→21:27)
[2019-04-03] MEDS: IBUPROFEN 600 MG TABLET (FP) PO PRN (10:36)
[2019-04-03] MEDS: NICOTINE POLACRILEX 2 MG GUM BUC PRN ×2 (14:31→21:29)
[2019-04-03] MEDS: THIAMINE HCL 100 MG TABLET (FP) PO SCH (21:27)
[2019-04-03] MEDS: LIDOCAINE PATCH REMOVAL MC SCH (21:27)
[2019-04-03] MEDS: MELATONIN 5 MG TABLETS PO PRN (21:29)
[2019-04-04] MEDS ORDERED: METHADONE HCL 10 MG TABLET ONE (05:58)
[2019-04-04] MEDS ORDERED: METHADONE HCL 40 MG DISPERSABLE TABLET ONE (05:59)
[2019-04-04] MEDS: METHADONE 40 MG, METHADONE 20 MG PO SCH (06:10)
[2019-04-04] MEDS: GABAPENTIN 300 MG CAPSULE (FP) PO SCH ×3 (06:10→21:20)
[2019-04-04] MEDS: NICOTINE POLACRILEX 2 MG GUM BUC PRN ×3 (06:12→21:21)
[2019-04-04] MEDS ORDERED: PT OWN MED DRAWER 7, Y5N ONE (08:52)
[2019-04-04] MEDS: CHLORHEXIDINE GLUCONATE 118 ML MOUTHWASH MM SCH ×2 (09:44→21:20)
[2019-04-04] MEDS: LIDOCAINE 5% TOPICAL PATCH TP SCH (09:44)
[2019-04-04] MEDS: PRENATAL VITAMINS W/ FOLIC ACID TABLET (FP) PO SCH (09:44)
[2019-04-04] MEDS: METHYL SALICYLATE/MENTHOL OINT 30 GM TUBE TP SCH (09:44)
[2019-04-04] MEDS: NICOTINE 14 MG/24 HOURS TOPICAL PATCH TD SCH (09:44)
[2019-04-04] MEDS: AMOXICILLIN 500 MG CAPSULE (FP) PO SCH ×2 (09:44→21:20)
[2019-04-04] MEDS: METHOCARBAMOL 500 MG TABLET PO SCH ×2 (09:44→21:20)
[2019-04-04] MEDS: THIAMINE HCL 100 MG TABLET (FP) PO SCH (21:20)
[2019-04-04] MEDS: MELATONIN 5 MG TABLETS PO PRN (21:20)
[2019-04-04] MEDS: LIDOCAINE PATCH REMOVAL MC SCH (21:21)
[2019-04-05] MEDS ORDERED: METHADONE HCL 10 MG TABLET ONE (06:05)
[2019-04-05] MEDS ORDERED: METHADONE HCL 40 MG DISPERSABLE TABLET ONE (06:05)
[2019-04-05] MEDS: GABAPENTIN 300 MG CAPSULE (FP) PO SCH ×3 (06:14→21:26)
[2019-04-05] MEDS: METHADONE 40 MG, METHADONE 20 MG PO SCH (06:14)
[2019-04-05] MEDS: AMOXICILLIN 500 MG CAPSULE (FP) PO SCH ×2 (09:55→21:26)
[2019-04-05] MEDS: NICOTINE 14 MG/24 HOURS TOPICAL PATCH TD SCH (09:55)
[2019-04-05] MEDS: PRENATAL VITAMINS W/ FOLIC ACID TABLET (FP) PO SCH (09:55)
[2019-04-05] MEDS: METHOCARBAMOL 500 MG TABLET PO SCH ×2 (09:55→21:26)
[2019-04-05] MEDS: LIDOCAINE 5% TOPICAL PATCH TP SCH (09:56)
[2019-04-05] MEDS: METHYL SALICYLATE/MENTHOL OINT 30 GM TUBE TP SCH (09:56)
[2019-04-05] MEDS: CHLORHEXIDINE GLUCONATE 118 ML MOUTHWASH MM SCH ×2 (09:56→21:26)
[2019-04-05] MEDS: NICOTINE POLACRILEX 2 MG GUM BUC PRN ×3 (09:57→23:33)
[2019-04-05] MEDS: IBUPROFEN 600 MG TABLET (FP) PO PRN (13:46)
[2019-04-05] MEDS: LIDOCAINE PATCH REMOVAL MC SCH (21:26)
[2019-04-05] MEDS: THIAMINE HCL 100 MG TABLET (FP) PO SCH (21:26)
[2019-04-05] MEDS: MELATONIN 5 MG TABLETS PO PRN (21:26)
[2019-04-06] MEDS ORDERED: METHADONE HCL 40 MG DISPERSABLE TABLET ONE (05:34)
[2019-04-06] MEDS ORDERED: METHADONE HCL 10 MG TABLET ONE (05:34)
[2019-04-06] MEDS: METHADONE 40 MG, METHADONE 20 MG PO SCH (06:08)
[2019-04-06] MEDS: GABAPENTIN 300 MG CAPSULE (FP) PO SCH ×3 (06:09→21:28)
[2019-04-06] MEDS: NICOTINE POLACRILEX 2 MG GUM BUC PRN ×3 (06:10→21:29)
[2019-04-06] MEDS: NICOTINE 14 MG/24 HOURS TOPICAL PATCH TD SCH (10:11)
[2019-04-06] MEDS: IBUPROFEN 600 MG TABLET (FP) PO PRN (10:11)
[2019-04-06] MEDS: AMOXICILLIN 500 MG CAPSULE (FP) PO SCH ×2 (10:12→21:28)
[2019-04-06] MEDS: PRENATAL VITAMINS W/ FOLIC ACID TABLET (FP) PO SCH (10:12)
[2019-04-06] MEDS: LIDOCAINE 5% TOPICAL PATCH TP SCH (10:14)
[2019-04-06] MEDS: CHLORHEXIDINE GLUCONATE 118 ML MOUTHWASH MM SCH ×2 (10:14→21:28)
[2019-04-06] MEDS: METHOCARBAMOL 500 MG TABLET PO SCH ×2 (10:14→21:28)
[2019-04-06] MEDS: METHYL SALICYLATE/MENTHOL OINT 30 GM TUBE TP SCH (10:14)
[2019-04-06] MEDS: LIDOCAINE PATCH REMOVAL MC SCH (21:28)
[2019-04-06] MEDS: THIAMINE HCL 100 MG TABLET (FP) PO SCH (21:28)
[2019-04-06] MEDS: MELATONIN 5 MG TABLETS PO PRN (21:29)
[2019-04-07] MEDS ORDERED: METHADONE HCL 10 MG TABLET ONE (05:40)
[2019-04-07] MEDS ORDERED: METHADONE HCL 40 MG DISPERSABLE TABLET ONE (05:40)
[2019-04-07] MEDS: GABAPENTIN 300 MG CAPSULE (FP) PO SCH ×3 (06:08→21:19)
[2019-04-07] MEDS: METHADONE 40 MG, METHADONE 20 MG PO SCH (06:08)
[2019-04-07] MEDS: NICOTINE POLACRILEX 2 MG GUM BUC PRN ×4 (06:10→21:19)
[2019-04-07] MEDS: METHYL SALICYLATE/MENTHOL OINT 30 GM TUBE TP SCH (09:40)
[2019-04-07] MEDS: METHOCARBAMOL 500 MG TABLET PO SCH ×2 (09:40→21:19)
[2019-04-07] MEDS: CHLORHEXIDINE GLUCONATE 118 ML MOUTHWASH MM SCH ×2 (09:40→21:19)
[2019-04-07] MEDS: PRENATAL VITAMINS W/ FOLIC ACID TABLET (FP) PO SCH (09:40)
[2019-04-07] MEDS: AMOXICILLIN 500 MG CAPSULE (FP) PO SCH (09:40)
[2019-04-07] MEDS: LIDOCAINE 5% TOPICAL PATCH TP SCH (09:41)
[2019-04-07] MEDS: NICOTINE 14 MG/24 HOURS TOPICAL PATCH TD SCH (09:41)
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
[2019-04-07] MEDS: THIAMINE HCL 100 MG TABLET (FP) PO SCH (21:18)
[2019-04-07] MEDS: LIDOCAINE PATCH REMOVAL MC SCH (21:19)
[2019-04-07] MEDS: MELATONIN 5 MG TABLETS PO PRN (21:19)
[2019-04-08] MEDS: GABAPENTIN 300 MG CAPSULE (FP) PO SCH ×2 (05:54→06:03)
[2019-04-08] MEDS: IBUPROFEN 600 MG TABLET (FP) PO PRN (06:03)
[2019-04-08 06:53] VITALS: BP 107/70; PULSE 60; TEMP 98.2
[2019-04-08] MEDS ORDERED: METHADONE HCL 40 MG DISPERSABLE TABLET ONE (08:57)
[2019-04-08] MEDS ORDERED: METHADONE HCL 10 MG TABLET ONE (08:57)
[2019-04-08] MEDS: METHOCARBAMOL 500 MG TABLET PO SCH (08:59)
[2019-04-08] MEDS: PRENATAL VITAMINS W/ FOLIC ACID TABLET (FP) PO SCH (08:59)
[2019-04-08] MEDS: NICOTINE POLACRILEX 2 MG GUM BUC PRN (09:00)
[2019-04-08] MEDS: LIDOCAINE 5% TOPICAL PATCH TP SCH (09:03)
[2019-04-08] MEDS ORDERED: METHADONE 40 MG, METHADONE 20 MG PO SCH (10:00)
== END 2019-04-08 09:42 | disposition home or self-care (01) | DRG 772 ==
LOC: YASAS 12:43 → Y3W 17:20
PROVIDERS: ADMIT Neuromusculoskeletal Medicine & OMM; ATTEND Neuromusculoskeletal Medicine & OMM
PROC: HZ42ZZZ Group Counseling for Substance Abuse Treatment, Cognitive-Behavioral (ICD-10-PCS; principal; 2019-03-27)
DX: F10.20 Alcohol dependence, uncomplicated (principal); F11.20 Opioid dependence, uncomplicated; F13.20 Sedative, hypnotic or anxiolytic dependence, uncomplicated; F17.210 Nicotine dependence, cigarettes, uncomplicated; F90.9 Attention-deficit hyperactivity disorder, unspecified type; J45.909 Unspecified asthma, uncomplicated; K05.6 Periodontal disease, unspecified; M54.5 Low back pain; Z91.19 Patient's noncompliance with other medical treatment and regimen; Z91.048 Other nonmedicinal substance allergy status
CPT/HCPCS: 81003

== ENCOUNTER 2019-04-23 18:30 | Inpatient (IN) | payer OTHER ==
[2019-04-23 22:31] VITALS: BMI 27.9
--- NOTE | 2019-04-23 22:50 | HP ---
CIWA Score Nausea/Vomitin-No Nausea/No Vomiting Muscle Tremors: 1-None Visible, but [place] Anxiety: 0-No Anxiety, at Ease Agitation: 1-Slight > Activity (IRRITAABLE) Paroxysmal Sweats: No Perspiration Orientation: 3-Disoriented Date>2 days Tacttile Disturbances: 2-Mild Itch/Numbness/Burn Auditory Disturbances: 0-None Visual Disturbances: 2-Mild Sensitivity (TO LIGHT) Headache: 3-Moderate CIWA-Ar Total Score: 12 - Admission Criteria OASAS Guidelines: Admission for Medically Managed Detox: Requires at least one of the followin. CIWA greater than 12 2. Seizures within the past 24 hours 3. Delirium tremens within the past 24 hours 4. Hallucinations within the past 24 hours 5. Acute intervention needed for co occurring medical disorder 6. Acute intervention needed for co occurring psychiatric disorder 7. Severe withdrawal that cannot be handled at a lower level of care (continued vomiting, continued diarrhea, abnormal vital signs) requiring intravenous medication and/or fluids 8. Patient presents the following: CIWA greater than 12 Admission Criteria Met: Admission criteria met Admitting History and Physical - Smoking History Smoking history: Current every day smoker Have you smoked in the past 12 months: Yes Aproximately how many cigarettes per day: 20 - Alcohol/Substance Use Hx Alcohol Use: No Admission ROS [facility] - HPI Chief Complaint: C/O WORSENING WITHDRAWAL SX'S Allergies/Adverse Reactions: Allergies Allergy/AdvReac Type Severity Reaction Status Date / Time No Known Drug Allergies Allergy Verified 04/23/19 22:03 Bleach (Sodium Hypochlorite) AdvReac Mild Itching Verified 04/23/19 22:03 History of Present Illness: here for detox from benzo. client is self referred. completing detox and rehab. dc 2 weeks ago reports relapsing right after. he reports daily use of xanax approximately 20 to 40 mg daily. last use today 2mg earlier. denies hx/o seizures or black outs. he is also on mmtp 100 mg daily. ldm today. he reports dose as 100 mg. at [facility]. he also reports heroin 1 bag intermittently via sniff. denies any clean time in the past year except when in txment. lives alone, employed, denies legals Exam Limitations: No Limitations - Ebola screening Have you traveled outside of the country in the last 21 days: No (N) Have you had contact with anyone from an Ebola affected area: No Do you have a fever: No - Review of Systems Constitutional: Chills, Loss of Appetite, Malaise, Night Sweats, Changes in sleep EENT: reports: No Symptoms Reported Respiratory: reports: No Symptoms reported Cardiac: reports: No Symptoms Reported GI: reports: Poor Appetite, Poor Fluid Intake : reports: No Symptoms Reported Musculoskeletal: reports: Back Pain (chronic) Integumentary: reports: No Symptoms Reported Neuro: reports: Headache, Tremors Endocrine: reports: No Symptoms Reported Hematology: reports: No Symptoms Reported Psychiatric: reports: Orientated x3, Agitated (irritable) Other Systems: Reviewed and Negative Patient History - Patient Medical History Hx Anemia: No Hx Asthma: Yes Hx Chronic Obstructive Pulmonary Disease (COPD): No Hx Cancer: No Hx Cardiac Disorders: Yes (Endocarditis) Hx Congestive Heart Failure: No Hx Hypertension: No Hx Hypercholesterolemia: No Hx Pacemaker: No HX Cerebrovascular Accident: No Hx Seizures: No Hx Dementia: No Hx Diabetes: No Hx Gastrointestinal Disorders: No Hx Liver Disease: No Hx Genitourinary Disorders: No Hx Sexually Transmitted Disorders: No Hx Renal Disease (ESRD): No Hx Thyroid Disease: No Hx Human Immunodeficiency Virus (HIV): No (Negative 2018) Hx Hepatitis C: No Hx Depression: No Hx Suicide Attempt: No Hx Bipolar Disorder: No Hx Schizophrenia: No Other Medical History: denies - Patient Surgical History Past Surgical History: Yes Hx Neurologic Surgery: No Hx Cataract Extraction: No Hx Cardiac Surgery: No Hx Lung Surgery: No Hx Abdominal Surgery: No Hx Appendectomy: Yes (2002) Hx Cholecystectomy: No Hx Genitourinary Surgery: No Hx Orthopedic Surgery: No Hx Hysterectomy: No Anesthesia Reaction: No - PPD History Previous Implant?: Yes Documented Results: Negative w/o proof Implanted On Prior [facility] Admission?: No Results: tb gold 07/2018 PPD to be Administered?: No - Smoking Cessation Smoking history: Current every day smoker Have you smoked in the past 12 months: Yes Aproximately how many cigarettes per day: 20 Cigars Per Day: 0 Hx Chewing Tobacco Use: No Initiated information on smoking cessation: Yes 'Breaking Loose' booklet given: 04/23/19 - Substance & Tx. History Hx Alcohol Use: No Hx Substance Use: Yes Substance Use Type: Cocaine, Heroin, Marijuana, Prescribed (mmtp), Tranquilizers (xanax, metamphet) Hx Substance Use Treatment: Yes ([facility]) - Substances abused Alprazolam (Xanax) Other (specify): 2mg Substance route: Oral Frequency: Daily Amount used: 6 tabs Age of first use: 28 Date of last use: 04/23/19 Heroin Substance route: Injection Frequency: Daily Amount used: 10-20 bags Age of first use: 20 Date of last use: 03/22/19 Cocaine Substance route: Inhalation Frequency: 1-2 times per week Amount used: 1000 thousand dollars. Age of first use: 28 Date of last use: 03/21/19 Admission Physical Exam S - Vital Signs Vital Signs: Vital Signs - 24 hr 04/23/19 22:15 Temperature 96.3 F L Pulse Rate 73 Respiratory 18 Rate Blood Pressure 78/57 L - Physical General Appearance: Yes: Mild Distress, Tremorous, Irritable, Anxious HEENTM: Yes: EOMI, Normocephalic, Normal Voice, ADDI, Pharynx Normal, Other ( missing teeth) Respiratory: Yes: Chest Non-Tender, Lungs Clear, Normal Breath Sounds, No Respiratory Distress, No Accessory Muscle Use Neck: Yes: No masses,lesions,Nodules, Supple, Trachea in good position Breast: Yes: Breasts Symetrical Cardiology: Yes: Regular Rhythm, Regular Rate, S1, S2 Abdominal: Yes: Normal Bowel Sounds, Non Tender, Soft Genitourinary: Yes: Within Normal Limits Back: Yes: Normal Inspection Musculoskeletal: Yes: full range of Motion, Gait Steady Extremities: Yes: Normal Capillary Refill, Normal Range of Motion, Non-Tender, Tremors Neurological: Yes: Alert, Motor Strength 5/5, Depressed Affect Integumentary: Yes: Dry, Warm Lymphatic: Yes: Within Normal Limits - Diagnostic (1) Cocaine dependence, uncomplicated Current Visit: Yes Status: Acute (2) Cannabis dependence, uncomplicated Current Visit: Yes Status: Acute (3) ADHD (attention deficit hyperactivity disorder) Current Visit: No Status: Chronic Qualifiers: Attention deficit-hyperactivity disorder type: unspecified Qualified Code(s ): F90.9 - Attention-deficit hyperactivity disorder, unspecified type Comment: By history. No symptoms at this time. (4) Asthma Current Visit: No Status: Chronic Qualifiers: Asthma severity: mild Asthma persistence: intermittent Asthma complication type: with status asthmaticus Qualified Code(s): J45.22 - Mild intermittent asthma with status asthmaticus (5) Methadone maintenance therapy patient Current Visit: No Status: Chronic (6) Nicotine dependence Current Visit: No Status: Chronic Qualifiers: Nicotine product type: cigarettes Substance use status: uncomplicated Qualified Code(s): F17.210 - Nicotine dependence, cigarettes, uncomplicated (7) Sedative, hypnotic or anxiolytic dependence with withdrawal, uncomplicated Current Visit: Yes Status: Acute (8) Depressed affect Current Visit: Yes Status: Acute Cleared for Admission S - Detox or Rehab [facility] Level of Care: Medically Managed Detox Regimen/Protocol: Librium Claeared for Rehab Admission: No Breathalyzer - Breathalyzer Breathalyzer: 0 Urine Drug Screen - Test Device Lot number: [id number] Expiration date: 11/14/20 - Control Is test valid?: Yes - Results Drug screen NEGATIVE: No Urine drug screen results: JOE-Cocaine, MTD-Methadone, BZO-Benzodiazepines Inpatient Rehab Admission - Rehab Decision to Admit Inpatient rehab admission?: No
[2019-04-23] MEDS ORDERED: ALBUTEROL SO4 8 GM HFA INHALER IH PRN (22:55)
[2019-04-23] MEDS ORDERED: MAGNESIUM HYDROX 2400MG/30ML ORAL SUSPENSION 30 ML CUP PO PRN (22:56)
[2019-04-23] MEDS ORDERED: MAG HYDROX/AL HYDROX/SIMETH 30 ML UNIT-DOSE CUP PO PRN (22:56)
[2019-04-23] MEDS ORDERED: BISMUTH SUBSALICYLATE 524 MG/30 ML UD PO PRN (22:56)
[2019-04-23] MEDS ORDERED: P-EPHED 60MG/TRIPROLIDI 2.5MG TABLET PO PRN (22:56)
[2019-04-23] MEDS ORDERED: MAGNESIUM CITRATE 300 ML BOTTLE PO PRN (22:56)
[2019-04-23] MEDS ORDERED: ACETAMINOPHEN 325 MG TABLET (FP) PO PRN ×2 (22:56)
[2019-04-23] MEDS ORDERED: MENTHOL/PHENOL 1 EACH UD MM PRN (22:56)
[2019-04-23] MEDS ORDERED: IBUPROFEN 400 MG TABLET (FP) PO PRN (22:56)
[2019-04-23] MEDS ORDERED: MELATONIN 5 MG TABLETS PO PRN (22:56)
[2019-04-23] MEDS ORDERED: chlordiazePOXIDE HCL 25 MG CAPSULE PO PRN (22:56)
[2019-04-23] MEDS ORDERED: ONDANSETRON *ODT* 4 MG TABLET SL PRN (22:56)
[2019-04-23] MEDS ORDERED: DICYCLOMINE HCL 10 MG CAPSULE PO PRN (22:56)
[2019-04-23] MEDS ORDERED: guaiFENesin 200 MG/10 ML 10 ML UNIT-DOSE CUPS PO PRN (22:56)
[2019-04-23] MEDS ORDERED: chlordiazePOXIDE HCL 25 MG CAPSULE PO SCH (23:00)
[2019-04-23] MEDS: diazePAM 5 MG TABLET PO SCH (23:48)
[2019-04-24] MEDS: diazePAM 5 MG TABLET PO PRN ×4 (04:25→17:25)
[2019-04-24] MEDS: diazePAM 5 MG TABLET PO SCH ×3 (06:11→22:04)
[2019-04-24] MEDS: GABAPENTIN 300 MG CAPSULE (FP) PO SCH ×3 (06:51→22:04)
[2019-04-24] MEDS ORDERED: METHADONE HCL 10 MG TABLET PO ONE (07:31)
[2019-04-24] MEDS: PRENATAL VITAMINS W/ FOLIC ACID TABLET (FP) PO SCH (09:57)
[2019-04-24] MEDS: NICOTINE 21 MG/24 HOURS TOPICAL PATCH TD SCH (09:58)
[2019-04-24] MEDS: NICOTINE POLACRILEX 2 MG GUM BUC PRN ×2 (12:13→22:04)
--- NOTE | 2019-04-24 12:46 | PN ---
S CIWA - CIWA Score Nausea/Vomitin-Mild Nausea/No Vomiting Muscle Tremors: 2 Anxiety: 2 Agitation: 2 Paroxysmal Sweats: No Perspiration Orientation: 0-Oriented Tacttile Disturbances: 1-Very Mild Itch/Numbness Auditory Disturbances: 0-None Visual Disturbances: 0-None Headache: 2-Mild CIWA-Ar Total Score: 10 BHS Progress Note (SOAP) Subjective: alert,irritable,anxious,interrupted sleep,tremor Objective: 04/24/19 12:45 Vital Signs Temperature 96.4 F L 04/24/19 09:24 Pulse Rate 91 H 04/24/19 09:24 Respiratory Rate 20 04/24/19 09:24 Blood Pressure 89/63 L 04/24/19 09:24 O2 Sat by Pulse Oximetry (%) 04/24/19 12:45 labs pending Assessment: 04/24/19 12:45 withdrawal symptom Plan: continue detox valium regimen
--- NOTE | 2019-04-24 14:07 | CONSULT ---
[facility] Psychiatric Consult - Data Date of interview: 04/24/19 Admission source: [facility] Identifying data: Another admission to [facility] for this 39 y/o male self-referred for detoxification (HENRY issues : alcohol, cocaine, heroin, benzodiazepine, cannabis, nicotine). Examined at [address] [place] [address]. Patient is single, no dependents, domiciled and employed (self-sufficient). Substance Abuse History: Smoking history: Current every day smoker. Have you smoked in the past 12 months: Yes. Aproximately how many cigarettes per day: 20. Cigars Per Day: 0. Hx Chewing Tobacco Use: No. Initiated information on smoking cessation: Yes. 'Breaking Loose' booklet given: 04/23/19. - Substance & Tx. History. Hx Alcohol Use: No. Hx Substance Use: Yes. Substance Use Type : Cocaine, Heroin, Marijuana, Prescribed (mmtp), Tranquilizers (xanax, metamphet ). [facility]: [facility] - Substances abused. Alprazolam (Xanax). Other (specify): 2mg. Substance route: Oral. Frequency: Daily. Amount used: 6 tabs. Age of first use: 28. Date of last use: . Heroin. Substance route: Injection. Frequency: Daily. Amount used: 10 -20 bags. Age of first use: 20. Date of last use: 03/22/19. Cocaine. Substance route: Inhalation. Frequency: 1-2 times per week. Amount used: 1000 thousand dollars. Age of first use: 28. Date of last use: 03/21/19 Medical History: Remarkable for endocarditis, bronchial asthma and a history of appendectomy. Psychiatric History: Patient endorses a distant history of psychiatric hospitalizations (childhood/adolescence). Diagnosed initially with ADHD and MDD (precipitant : of father). Revised to Bipolar Disorder. Patient is currently prescribed adderall + gabapentin. Mr Nievse reports only sporadic visits to his psychiatrist at the [facility] (no show for more than eight months). Patient is currently on methadone maintenance (100 mg/day) at the [facility] in [facility]. Denies history of suicide attempts. Physical/Sexual Abuse/Trauma History: Patient denies. Additional Comment: Urine drug screen results: JOE-Cocaine, MTD-Methadone, BZO- Benzodiazepines. Noted. Mental Status Exam - Mental Status Exam Alert and Oriented to: Time, Place, Person Cognitive Function: Good Patient Appearance: Well Groomed Mood: Nervous, Anxious Affect: Mood Congruent Patient Behavior: Appropriate, Cooperative Speech Pattern: Clear, Appropriate Voice Loudness: Normal Thought Process: Intact, Goal Oriented Thought Disorder: Not Present Hallucinations: Denies Suicidal Ideation: Denies Homicidal Ideation: Denies Insight/Judgement: Poor Sleep: Poorly, Difficulty falling asleep Appetite: Good Muscle strength/Tone: Normal Gait/Station: Normal Psychiatric Findings - Problem List ([place] 1, 2,3) (1) Alcohol dependence with uncomplicated withdrawal Current Visit: Yes Status: Acute (2) Opioid dependence on agonist therapy Current Visit: Yes Status: Chronic (3) Cannabis dependence, uncomplicated Current Visit: Yes Status: Chronic (4) Cocaine dependence, uncomplicated Current Visit: Yes Status: Chronic (5) Sedative, hypnotic or anxiolytic dependence with withdrawal, uncomplicated Current Visit: Yes Status: Chronic (6) ADHD (attention deficit hyperactivity disorder) Current Visit: Yes Status: Chronic Qualifiers: Attention deficit-hyperactivity disorder type: unspecified Qualified Code(s ): F90.9 - Attention-deficit hyperactivity disorder, unspecified type Comment: By history. No symptoms at this time. (7) Nicotine dependence Current Visit: Yes Status: Chronic Qualifiers: Nicotine product type: cigarettes Substance use status: uncomplicated Qualified Code(s): F17.210 - Nicotine dependence, cigarettes, uncomplicated (8) History of bipolar disorder Current Visit: Yes Status: Chronic (9) ADHD (attention deficit hyperactivity disorder) Current Visit: Yes Status: Chronic Comment: By history. (10) Non-compliance Current Visit: Yes Status: Chronic - Initial Treatment Plan Initial Treatment Plan: Psychoeducation. Sleep hygiene. Detoxification. AA/NA meetings. Support. Groups. Patient expresses interest for rehabilitation after detoxification. Observation.
[2019-04-24] MEDS: THIAMINE HCL 100 MG TABLET (FP) PO SCH (22:04)
[2019-04-25] MEDS ORDERED: chlordiazePOXIDE HCL 25 MG CAPSULE PO SCH (05:00)
[2019-04-25] MEDS: GABAPENTIN 300 MG CAPSULE (FP) PO SCH ×3 (05:28→22:32)
[2019-04-25] MEDS: diazePAM 5 MG TABLET PO SCH ×2 (05:28→17:16)
[2019-04-25] MEDS ORDERED: METHADONE HCL 10 MG TABLET PO SCH (06:00)
[2019-04-25] MEDS: diazePAM 5 MG TABLET PO PRN ×3 (09:14→19:14)
[2019-04-25] MEDS: METHADONE 80 MG, METHADONE 20 MG PO SCH (09:16)
[2019-04-25] MEDS: NICOTINE 21 MG/24 HOURS TOPICAL PATCH TD SCH (10:37)
[2019-04-25] MEDS: PRENATAL VITAMINS W/ FOLIC ACID TABLET (FP) PO SCH (10:38)
[2019-04-25] MEDS: METHOCARBAMOL 500 MG TABLET PO PRN ×2 (10:38→17:16)
[2019-04-25] MEDS: hydrOXYzine PAMOATE 25 MG CAPSULE (FP) PO PRN (10:39)
--- NOTE | 2019-04-25 11:58 | PN ---
[facility] CIWA - CIWA Score Nausea/Vomitin-No Nausea/No Vomiting Muscle Tremors: None Anxiety: 3 Agitation: 0-Normal Activity Paroxysmal Sweats: 3 Orientation: 0-Oriented Tacttile Disturbances: 0-None Auditory Disturbances: 0-None Visual Disturbances: 0-None Headache: 2-Mild CIWA-Ar Total Score: 8 [facility] Progress Note (SOAP) Subjective: c/o anxiety, headache, and sweats. Objective: 04/25/19 11:52 Vital Signs 04/25/19 04/25/19 06:10 09:30 Temperature 97.5 F L 97.0 F L Pulse Rate 83 97 H Respiratory 18 18 Rate Blood Pressure 116/67 124/73 Assessment: 04/25/19 11:52 AOX3, in no acute respiratory distress. Full rom, ambulating in the unit. Withdrawal symptoms. For D/C tomorrow but will keep one more day for rehab admission on saturday. 04/25/19 11:53 Plan: continue detox. discharge to rehab on saturday.
[2019-04-25] MEDS: NICOTINE POLACRILEX 2 MG GUM BUC PRN ×2 (13:30→17:17)
[2019-04-25] MEDS: THIAMINE HCL 100 MG TABLET (FP) PO SCH (22:32)
[2019-04-26] MEDS ORDERED: chlordiazePOXIDE HCL 10 MG CAPSULE PO PRN
[2019-04-26] MEDS: diazePAM 5 MG TABLET PO PRN ×5 (00:03→22:38)
[2019-04-26] MEDS: METHOCARBAMOL 500 MG TABLET PO PRN ×3 (00:03→22:38)
[2019-04-26] MEDS: NICOTINE POLACRILEX 2 MG GUM BUC PRN ×3 (00:04→22:39)
[2019-04-26] MEDS ORDERED: METHADONE HCL 10 MG TABLET ONE (04:32)
[2019-04-26] MEDS ORDERED: METHADONE HCL 40 MG DISPERSABLE TABLET ONE (04:32)
[2019-04-26] MEDS ORDERED: chlordiazePOXIDE HCL 10 MG CAPSULE PO SCH (05:00)
[2019-04-26] MEDS: METHADONE 80 MG, METHADONE 20 MG PO SCH (05:34)
[2019-04-26] MEDS: GABAPENTIN 300 MG CAPSULE (FP) PO SCH ×3 (05:34→22:38)
[2019-04-26] MEDS ORDERED: diazePAM 5 MG TABLET PO ONE (06:00)
[2019-04-26] MEDS: NICOTINE 21 MG/24 HOURS TOPICAL PATCH TD SCH (10:39)
[2019-04-26] MEDS: PRENATAL VITAMINS W/ FOLIC ACID TABLET (FP) PO SCH (10:39)
--- NOTE | 2019-04-26 12:53 | PN ---
S CIWA - CIWA Score Nausea/Vomitin-No Nausea/No Vomiting Muscle Tremors: 1-None Visible, but [place] Anxiety: 2 Agitation: 1-Slight > Activity Paroxysmal Sweats: No Perspiration Orientation: 0-Oriented Tacttile Disturbances: 0-None Auditory Disturbances: 0-None Visual Disturbances: 0-None Headache: 0-None Present CIWA-Ar Total Score: 4 [facility] Progress Note (SOAP) Subjective: 39 years old male admitted on 04/23/19 for benzo withdrawal sx management treated with valium detox regimen feeling better less anxiety sleep better at night Objective: 04/26/19 12:53 Vital Signs Temperature 97.1 F L 04/26/19 09:08 Pulse Rate 103 H 04/26/19 09:08 Respiratory Rate 18 04/26/19 09:08 Blood Pressure 110/80 04/26/19 09:08 O2 Sat by Pulse Oximetry (%) 04/26/19 12:54 lab see 03/2019 report Assessment: 04/26/19 12:54 benzo withdrawal sx Plan: continue valium detox medically supervised
[2019-04-26] MEDS: THIAMINE HCL 100 MG TABLET (FP) PO SCH (22:38)
[2019-04-27] MEDS ORDERED: METHADONE HCL 40 MG DISPERSABLE TABLET ONE (04:26)
[2019-04-27] MEDS ORDERED: METHADONE HCL 10 MG TABLET ONE (04:26)
[2019-04-27] MEDS ORDERED: chlordiazePOXIDE HCL 10 MG CAPSULE PO SCH (05:00)
[2019-04-27] MEDS: METHADONE 80 MG, METHADONE 20 MG PO SCH (05:19)
[2019-04-27] MEDS: GABAPENTIN 300 MG CAPSULE (FP) PO SCH (05:20)
[2019-04-27 09:26] VITALS: BP 115/80; PULSE 101; TEMP 98.7
[2019-04-27] MEDS: hydrOXYzine PAMOATE 25 MG CAPSULE (FP) PO PRN (10:21)
[2019-04-27] MEDS: PRENATAL VITAMINS W/ FOLIC ACID TABLET (FP) PO SCH (10:22)
[2019-04-27] MEDS: NICOTINE 21 MG/24 HOURS TOPICAL PATCH TD SCH (10:23)
--- NOTE | 2019-04-27 10:53 | DS ---
[facility] Detox Discharge Summary Admission Date: 04/23/19 Discharge Date: 04/27/19 - History Present History: Sedative Dependence Additional Comments: 39 years old male admitted on 04/23/19 for benzo withdrawal sx management treated with valium detox regimen patient reported that his benzo detox regimen was wrong demanded repeating valium detox regimen behavior and psychosocial therapies through multidisciplinary team approach patient acknowledged addiction patterns determines to remain sober patient [facility] coping skills to maintain benzo free Pertinent Past History: patient is alert oriented x 3 speech clearly coherently cardiac S1S2 regular rate rhythm respiratory clear lung bilaterally on auscultation extremities full range of motion - Physical Exam Results Vital Signs: Vital Signs Temperature 98.7 F 04/27/19 09:25 Pulse Rate 101 H 04/27/19 09:25 Respiratory Rate 18 04/27/19 09:25 Blood Pressure 115/80 04/27/19 09:25 O2 Sat by Pulse Oximetry (%) Pertinent Admission Physical Exam Findings: benzo withdrawal sx lab see 03/25/19 report - Treatment Hospital Course: Detox Protocol Followed, Detoxed Safely, Responded well, Discharged Condition Good, Rehab Referral Accepted Patient has Accepted a Rehab Referral to: [facility] - Medication Discharge Medications: Ambulatory Orders Albuterol Sulfate [Proair Hfa -] 1 inh IH PRN PRN 06/09/15 Albuterol Sulfate Inhaler - [Ventolin HFA Inhaler -] 1 puff IH Q4H PRN #1 inhaler 04/07/19 Gabapentin 300 mg PO TID #30 capsule 04/07/19 Dextroamphetamine/Amphetamine [Adderall 10 mg Tablet] 30 mg PO BID 04/23/19 - Diagnosis (1) Nicotine dependence Current Visit: Yes Status: Acute Qualifiers: Nicotine product type: cigarettes Substance use status: in withdrawal Qualified Code(s): F17.213 - Nicotine dependence, cigarettes, with withdrawal (2) Opioid dependence on agonist therapy Current Visit: Yes Status: Acute (3) Sedative, hypnotic or anxiolytic dependence with withdrawal, uncomplicated Current Visit: Yes Status: Acute (4) Asthma Current Visit: Yes Status: Chronic Qualifiers: Asthma severity: mild Asthma persistence: intermittent Asthma complication type: with status asthmaticus Qualified Code(s): J45.22 - Mild intermittent asthma with status asthmaticus (5) Methadone maintenance therapy patient Current Visit: Yes Status: Chronic - AMA Did Patient Leave Against Medical Advice: No CIWA Score - CIWA Score Nausea/Vomitin-No Nausea/No Vomiting Muscle Tremors: None Anxiety: 1-Mildly Anxious Agitation: 0-Normal Activity Paroxysmal Sweats: No Perspiration Orientation: 0-Oriented Tacttile Disturbances: 0-None Auditory Disturbances: 0-None Visual Disturbances: 0-None Headache: 0-None Present CIWA-Ar Total Score: 1
[2019-04-27] MEDS: METHOCARBAMOL 500 MG TABLET PO PRN (11:59)
[2019-04-28] MEDS ORDERED: chlordiazePOXIDE HCL 10 MG CAPSULE PO ONE (05:00)
== END 2019-04-27 13:15 | disposition home or self-care (01) | DRG 773 ==
LOC: YASAS 18:30 → Y3N 22:53
PROVIDERS: ADMIT Allergy & Immunology; ATTEND Allergy & Immunology
PROC: HZ2ZZZZ Detoxification Services for Substance Abuse Treatment (ICD-10-PCS; principal; 2019-04-23)
DX: F10.230 Alcohol dependence with withdrawal, uncomplicated (principal); F13.230 Sedative, hypnotic or anxiolytic dependence with withdrawal, uncomplicated; F11.20 Opioid dependence, uncomplicated; F14.20 Cocaine dependence, uncomplicated; F12.20 Cannabis dependence, uncomplicated; F17.213 Nicotine dependence, cigarettes, with withdrawal; F31.9 Bipolar disorder, unspecified; F90.9 Attention-deficit hyperactivity disorder, unspecified type; R45.89 Other symptoms and signs involving emotional state; Z91.19 Patient's noncompliance with other medical treatment and regimen; Z88.8 Allergy status to other drugs, medicaments and biological substances

== ENCOUNTER 2021-10-08 04:44 | Inpatient (IN) | payer OTHER ==
[2021-10-08] MEDS ORDERED: ONDANSETRON *ODT* 4 MG TABLET SL PRN (05:15)
[2021-10-08] MEDS ORDERED: MAGNESIUM HYDROX 2400MG/30ML ORAL SUSPENSION 30 ML CUP PO PRN (05:15)
[2021-10-08] MEDS ORDERED: BENZOCAINE/MENTHOL (CHLORASEPTIC ) LOZENGE MM PRN (05:15)
[2021-10-08] MEDS ORDERED: DICYCLOMINE HCL 10 MG CAPSULE PO PRN (05:15)
[2021-10-08] MEDS ORDERED: MAG HYDROX/AL HYDROX/SIMETH 30 ML UNIT-DOSE CUP PO PRN (05:15)
[2021-10-08] MEDS ORDERED: ACETAMINOPHEN 325 MG TABLET (FP) PO PRN (05:15)
[2021-10-08] MEDS ORDERED: BISMUTH SUBSALICYLATE 524 MG/30 ML PO PRN (05:15)
[2021-10-08] MEDS ORDERED: LOPERAMIDE HCL 2 MG CAPSULE PO PRN (05:15)
[2021-10-08] MEDS ORDERED: MAGNESIUM CITRATE 300 ML BOTTLE PO PRN (05:15)
[2021-10-08] MEDS: diazePAM 5 MG TABLET PO SCH ×4 (06:58→22:29)
[2021-10-08] MEDS: NICOTINE 21 MG/24 HOURS TOPICAL PATCH TD SCH (10:18)
[2021-10-08] MEDS: PRENATAL VITAMINS W/ FOLIC ACID TABLET (FP) PO SCH (10:18)
[2021-10-08] MEDS: diazePAM 5 MG TABLET PO PRN ×2 (13:09→20:02)
[2021-10-08] MEDS: ACETAMINOPHEN 325 MG TABLET (FP) PO PRN ×2 (13:10→22:31)
[2021-10-08] MEDS ORDERED: ALBUTEROL SO4 HFA INHALER IH SCH (13:30)
[2021-10-08] MEDS ORDERED: ALBUTEROL SO4 HFA INHALER IH PRN (13:31)
[2021-10-08] MEDS: cloNIDine HCL 0.1 MG TABLET PO SCH ×2 (15:35→22:30)
[2021-10-08] MEDS: NICOTINE POLACRILEX 4 MG GUM BUC PRN ×2 (15:37→22:35)
[2021-10-08] MEDS: IBUPROFEN 400 MG TABLET (FP) PO PRN (20:01)
[2021-10-08] MEDS: THIAMINE HCL 100 MG TABLET (FP) PO SCH (22:29)
[2021-10-08] MEDS: MELATONIN 5 MG TABLETS PO SCH (22:30)
[2021-10-09] MEDS: diazePAM 5 MG TABLET PO PRN ×3 (04:14→17:29)
[2021-10-09] MEDS: NICOTINE POLACRILEX 4 MG GUM BUC PRN (05:54)
[2021-10-09] MEDS: diazePAM 5 MG TABLET PO SCH ×3 (05:55→22:10)
[2021-10-09] MEDS ORDERED: methaDONE HCL 10 MG TABLET PO SCH (09:45)
[2021-10-09 09:51] LABS: HEMATOCRIT 32.8 % (35.4-49); HEMOGLOBIN 11.1 GM/dL (11.7-16.9); MCH 31.3 pg (25.7-33.7); MEAN CELL VOLUME 92.1 fl (80-96); MEAN PLT VOLUME 8.5 fl (7.5-11.1); PLATELET COUNT 157 10^3/uL (134-434); RBC 3.55 M/mm3 (4.00-5.60); WHITE BLOOD COUNT 3.4 K/mm3 (4.0-10.0)
[2021-10-09 10:05] LABS: CALCIUM 8.9 mg/dL (8.5-10.1)
[2021-10-09 10:06] LABS: BLOOD UREA NITROGEN 17.8 mg/dL (7-18)
[2021-10-09 10:09] LABS: CREATININE 0.6 mg/dL (0.55-1.3)
[2021-10-09 10:10] LABS: BILIRUBIN,TOTAL 0.7 mg/dL (0.2-1); TOT PROT 6.2 g/dl (6.4-8.2)
[2021-10-09] MEDS ORDERED: methaDONE HCL 40 MG DISPERSABLE TABLET ONE (10:18)
[2021-10-09] MEDS ORDERED: methaDONE HCL 10 MG TABLET ONE (10:18)
[2021-10-09] MEDS: cloNIDine HCL 0.1 MG TABLET PO SCH ×2 (10:21→22:09)
[2021-10-09] MEDS: NICOTINE 21 MG/24 HOURS TOPICAL PATCH TD SCH (10:21)
[2021-10-09] MEDS: PRENATAL VITAMINS W/ FOLIC ACID TABLET (FP) PO SCH (10:24)
[2021-10-09] MEDS: NICOTINE 10 MG CARTRIDGE (INHALER) IH PRN (14:56)
[2021-10-09] MEDS: METHOCARBAMOL 500 MG TABLET PO PRN (17:28)
[2021-10-09] MEDS: MELATONIN 5 MG TABLETS PO SCH (22:09)
[2021-10-09] MEDS: THIAMINE HCL 100 MG TABLET (FP) PO SCH (22:09)
[2021-10-10] MEDS: diazePAM 5 MG TABLET PO PRN ×4 (02:04→22:54)
[2021-10-10] MEDS ORDERED: methaDONE HCL 10 MG TABLET ONE (04:47)
[2021-10-10] MEDS ORDERED: methaDONE HCL 40 MG DISPERSABLE TABLET ONE (04:48)
[2021-10-10] MEDS: diazePAM 5 MG TABLET PO SCH ×2 (05:52→18:35)
[2021-10-10] MEDS: IBUPROFEN 400 MG TABLET (FP) PO PRN (08:45)
[2021-10-10] MEDS: NICOTINE 10 MG CARTRIDGE (INHALER) IH PRN (08:47)
[2021-10-10] MEDS: cloNIDine HCL 0.1 MG TABLET PO SCH ×2 (10:36→22:53)
[2021-10-10] MEDS: PRENATAL VITAMINS W/ FOLIC ACID TABLET (FP) PO SCH (10:36)
[2021-10-10] MEDS: NICOTINE 21 MG/24 HOURS TOPICAL PATCH TD SCH (10:36)
[2021-10-10 14:08] LABS: SARS-CoV-2 NAA Not Detected (Not Detected)
[2021-10-10] MEDS: THIAMINE HCL 100 MG TABLET (FP) PO SCH (22:53)
[2021-10-10] MEDS: MELATONIN 5 MG TABLETS PO SCH (23:22)
[2021-10-11] MEDS ORDERED: methaDONE HCL 10 MG TABLET ONE (04:47)
[2021-10-11] MEDS ORDERED: methaDONE HCL 40 MG DISPERSABLE TABLET ONE (04:48)
[2021-10-11] MEDS: IBUPROFEN 400 MG TABLET (FP) PO PRN ×2 (05:39→17:54)
[2021-10-11] MEDS: METHOCARBAMOL 500 MG TABLET PO PRN ×2 (05:39→17:54)
[2021-10-11] MEDS ORDERED: diazePAM 5 MG TABLET PO ONE (06:00)
[2021-10-11] MEDS: cloNIDine HCL 0.1 MG TABLET PO SCH ×2 (10:10→22:17)
[2021-10-11] MEDS: PRENATAL VITAMINS W/ FOLIC ACID TABLET (FP) PO SCH (10:10)
[2021-10-11] MEDS: NICOTINE 21 MG/24 HOURS TOPICAL PATCH TD SCH (10:10)
[2021-10-11] MEDS: diazePAM 5 MG TABLET PO SCH ×2 (10:45→22:17)
[2021-10-11] MEDS: NICOTINE 10 MG CARTRIDGE (INHALER) IH PRN (18:06)
[2021-10-11] MEDS: NICOTINE POLACRILEX 4 MG GUM BUC PRN (18:06)
[2021-10-11] MEDS: THIAMINE HCL 100 MG TABLET (FP) PO SCH (22:17)
[2021-10-11] MEDS: MELATONIN 5 MG TABLETS PO SCH (22:17)
[2021-10-12] MEDS ORDERED: methaDONE HCL 40 MG DISPERSABLE TABLET ONE (05:00)
[2021-10-12] MEDS ORDERED: methaDONE HCL 10 MG TABLET ONE (05:00)
[2021-10-12] MEDS: diazePAM 5 MG TABLET PO SCH (06:06)
[2021-10-12] MEDS: METHOCARBAMOL 500 MG TABLET PO PRN (06:07)
[2021-10-12] MEDS: IBUPROFEN 400 MG TABLET (FP) PO PRN (06:07)
[2021-10-12 09:31] VITALS: BP 139/72; PULSE 73; TEMP 97.5
[2021-10-12] MEDS: NICOTINE 21 MG/24 HOURS TOPICAL PATCH TD SCH (10:38)
[2021-10-12] MEDS: cloNIDine HCL 0.1 MG TABLET PO SCH (10:38)
[2021-10-12] MEDS: PRENATAL VITAMINS W/ FOLIC ACID TABLET (FP) PO SCH (10:38)
== END 2021-10-12 11:46 | disposition home or self-care (01) | DRG 773 ==
LOC: YASAS 04:44 → Y3N 05:32 → MERGE 05:32 → Y3N 07:51
PROVIDERS: ADMIT Allergy & Immunology; ATTEND Allergy & Immunology
PROC: HZ2ZZZZ Detoxification Services for Substance Abuse Treatment (ICD-10-PCS; principal; 2021-10-08)
DX: F13.230 Sedative, hypnotic or anxiolytic dependence with withdrawal, uncomplicated (principal); F11.20 Opioid dependence, uncomplicated; F15.10 Other stimulant abuse, uncomplicated; F17.210 Nicotine dependence, cigarettes, uncomplicated; F19.280 Other psychoactive substance dependence with psychoactive substance-induced anxiety disorder; F19.24 Other psychoactive substance dependence with psychoactive substance-induced mood disorder; F41.9 Anxiety disorder, unspecified; F32.A Depression, unspecified; F43.10 Post-traumatic stress disorder, unspecified; E78.5 Hyperlipidemia, unspecified; E66.01 Morbid (severe) obesity due to excess calories; J45.909 Unspecified asthma, uncomplicated; Z86.79 Personal history of other diseases of the circulatory system; Z56.0 Unemployment, unspecified; Z59.00 Homelessness unspecified
CPT/HCPCS: 36415; 70450-TC; 70486-TC; 72125-TC; 80053; 80307; 85027; 86780; 93005; 93010; 99281-25; C9803-CS; J0735; U0003; U0005